=== PATIENT | female | born 1960 | race Caucasian/White ===

== ENCOUNTER 2016-12-11 20:33 | Inpatient (IN) | payer BC ==
[~2016-12-11] VITALS: Ht 160 cm; Wt 64.0 kg
[~2016-12-11 20:33] MED LIST: ALPR0.5T99 PO; CITA20 PO; CYCL-36 PO; LORT5TAB PO
[2016-12-11 20:39] VITALS: BP 115/75; PULSE 94; RESP 20; TEMP 99.6; O2SAT 6; O2SAT 96
[2016-12-11 21:10] VITALS: RESP 20; O2SAT 98
[2016-12-11] MEDS ORDERED: SODIUM CHLORIDE 0.9% FLUSH 5 ML FLUSH IVF PRN (21:15)
[2016-12-11] MEDS ORDERED: ALPR.5 PO (21:15)
[2016-12-11] MEDS ORDERED: CELE20TA PO (21:15)
[2016-12-11] MEDS ORDERED: BUPR150CR PO (21:15)
[2016-12-11] MEDS ORDERED: MOTR200T4 PO (21:15)
[2016-12-11] MEDS ORDERED: HYDR-3516 PO (21:15)
[2016-12-11 21:45] VITALS: BP 108/67; PULSE 96; RESP 20; O2SAT 97
[2016-12-11 22:26] LABS: GLUCOSE,URINE NEG (NEG); KETONE, URINE NEG (NEG); NITRITE,URINE NEG (NEG)
[2016-12-11 22:27] LABS: AUTOMATED NEUTROPHIL # 15.5 TH/MM3 (1.8-7.7); BASOPHIL % 0.2 % (0.0-2.0); EOSINOPHIL # 0.1 TH/MM3 (0-0.4); EOSINOPHIL % 0.4 % (0.0-4.0); HEMATOCRIT 33.5 % (35.0-46.0); LYMPH % 10.6 % (9.0-44.0); MEAN CELL VOLUME 89.4 FL (80.0-100.0); MEAN CORPUSCULAR HEMOGLOBIN 29.5 PG (27.0-34.0); MONO % 5.1 % (0.0-8.0); NEUT % 83.7 % (16.0-70.0); PLATELET COUNT 721 TH/MM3 (150-450); RED BLOOD COUNT 3.74 MIL/MM3 (4.00-5.30); RED CELL DISTRIBUTION WIDTH 12.9 % (11.6-17.2); WHITE BLOOD COUNT 18.6 TH/MM3 (4.0-11.0)
[2016-12-11 22:33] LABS: CHLORIDE 98 MEQ/L (98-107); POTASSIUM 4.1 MEQ/L (3.5-5.1); SODIUM (NA) 136 MEQ/L (136-145)
[2016-12-11 22:37] LABS: APTT (PATIENT) 30.6 SEC (24.3-30.1); PROTHROMBIN TIME - PATIENT 10.6 SEC (9.8-11.6)
[2016-12-11 22:38] LABS: ANION GAP 8 MEQ/L (5-15); BICARBONATE 30.2 MEQ/L (21.0-32.0)
[2016-12-11 22:39] LABS: BLOOD UREA NITROGEN 7 MG/DL (7-18)
[2016-12-11 22:40] VITALS: BP 126/59; PULSE 100; RESP 20; O2SAT 98
[2016-12-11 22:41] LABS: ALT (GPT) 22 U/L (10-53); AST (GOT) 26 U/L (15-37); GLOMERULAR FILTRATION RATE 118 ML/MIN (>89)
[2016-12-11 22:43] LABS: TOTAL BILIRUBIN ADULT 0.2 MG/DL (0.2-1.0)
[2016-12-11 22:44] LABS: ALKALINE PHOSPHATASE 137 U/L (45-117)
--- NOTE | 2016-12-11 22:45 | RADHPO ---
EXAM DATE/TIME: 12/11/2016 21:27 [facility] COMPARISON: No previous studies available for comparison. INDICATIONS : Fever. MEDICAL HISTORY : Uterine cancer SURGICAL HISTORY : Hysterectomy. ENCOUNTER: Initial ACUITY: 1 day PAIN SCORE: 10/10 LOCATION: Bilateral chest FINDINGS: A single view of the chest demonstrates the lungs to be symmetrically aerated without evidence of mas s, infiltrate or effusion. The cardiomediastinal contours are unremarkable. Osseous structures are intact. CONCLUSION: No acute disease. Roberto Rene MD on December 11, 2016 at 22:43 Board Certified Radiologist. This report was verified electronically.
[2016-12-11 22:56] LABS: BLOOD, URINE MOD (NEG)
[2016-12-11 23:00] LABS: METHOD OF COLLECTION CLEAN CATCH; URINE COLOR STRAW (YELLW/STRAW)
[2016-12-11 23:01] LABS: MUCUS URINE OCC /lpf (OCC)
[2016-12-11 23:02] LABS: RBC, URINE 0-3 /hpf (0-3); SQUAMOUS EPITHELIAL CELL URINE 0-5 /hpf (0-5); WBC, URINE 0-2 /hpf (0-5)
[2016-12-11 23:03] LABS: COMMENT (UR) CULT NOT INDICATED; CULTURE IF INDICATED CULT NOT INDICATED
[2016-12-11] MEDS ORDERED: IOHEXOL 350 MG/ML 10 ML VIAL (for RAD DIAG) IV ONE (23:05)
[2016-12-11 23:09] LABS: HEMO FLAGS AUTO DIFF
[2016-12-11 23:12] LABS: PLATELET ESTIMATE SMEAR HIGH (NORMAL); PLATELET MORPHOLOGY NORMAL (NORMAL); SCAN/DIFF AUTO DIFF CONFIRMED
--- NOTE | 2016-12-11 23:19 | RADHPO ---
EXAM DATE/TIME: 12/11/2016 22:22 [facility] COMPARISON: No previous studies available for comparison. INDICATIONS : Left leg swelling. MEDICAL HISTORY : Uterian cancer. Anxiety. SURGICAL HISTORY : Hysterectomy. Tubal ligation. section. Rotator cuff repair. ENCOUNTER: Initial ACUITY: 3 days PAIN SCORE: 8/10 LOCATION: Left leg. TECHNIQUE: Venous ultrasound of the leg was performed from the inguinal ligament to the proximal calf. Real-donald e, color Doppler and spectral tracing, compression and augmentation techniques were used. FINDINGS: There is normal compressibility of the deep venous system from the inguinal region to the proximal ca lf. No echogenic clot is seen in the lumen of the common femoral, femoral, popliteal, and posterior tibial veins. There is a normal response of the venous system to proximal and distal augmentation an d respiration. CONCLUSION: No evidence of DVT. Ruben Manriquez MD on December 11, 2016 at 23:18 Board Certified Radiologist. This report was verified electronically.
[2016-12-11] MEDS ORDERED: metroNIDAZOLE 500 MG INJ 100 ML IV ONE (23:30)
[2016-12-11] MEDS ORDERED: PIPERACIL-TAZO 3.375 GM PREMIX 50 ML IV ONE (23:30)
--- NOTE | 2016-12-11 23:31 | RADHPO ---
EXAM DATE/TIME: 12/11/2016 22:49 [facility] COMPARISON: No previous studies available for comparison. INDICATIONS : Abdomen pain, vomiting. IV CONTRAST: 60 cc Omnipaque 350 (iohexol) IV ORAL CONTRAST: No oral contrast ingested. RADIATION DOSE: 10.52 CTDIvol (mGy) MEDICAL HISTORY : uterine cacner SURGICAL HISTORY : Hysterectomy. ENCOUNTER: Initial ACUITY: 1 day PAIN SCALE: 6/10 LOCATION: abdomen TECHNIQUE: Volumetric scanning of the abdomen and pelvis was performed. Using automated exposure control and ad justment of the mA and/or kV according to patient size, radiation dose was kept as low as reasonably achievable to obtain optimal diagnostic quality images. FINDINGS: LOWER LUNGS: The visualized lower lungs are clear. LIVER: Homogeneous density without lesion. There is no dilation of the biliary tree. No calcified gallston es. SPLEEN: Normal size without lesion. PANCREAS: Within normal limits. KIDNEYS: Normal in size and shape. There is no mass, stone or hydronephrosis. There is a 9 mm cyst along the midpole of the right kidney. ADRENAL GLANDS: Within normal limits. VASCULAR: There is no aortic aneurysm. BOWEL/MESENTERY: The stomach, small bowel, and colon demonstrate no acute abnormality. There is no free intraperitone al air or fluid. ABDOMINAL WALL: Within normal limits. RETROPERITONEUM: The left iliac is muscle is diffusely enlarged and there are multiple areas of low density within the iliacis muscle. The largest component measures about 4.6 cm adjacent to the left iliac wing. There i s a smaller pocket measuring 3.6 cm slightly inferiorly. Small pockets are also noted in the left susan acis muscle. This is characteristic for abscesses in the left iliac is muscle. The adjacent left susan ac bone is not involved at this time. BLADDER: No wall thickening or mass. REPRODUCTIVE: Within normal limits. INGUINAL: There is no lymphadenopathy or hernia. MUSCULOSKELETAL: Within normal limits for patient age. Mild degenerative changes of the lumbar spine. Multiple abscess es are noted in the left iliacis muscle. No free fluid. CONCLUSION: 1. The left iliacis muscle is diffusely enlarged with multiple low-density pockets characteristic for multiple abscesses. The largest pocket measures approximately 4.6 cm. 2. 9 mm right renal cyst. Ruben Manriquez MD on December 11, 2016 at 23:18 Board Certified Radiologist. This report was verified electronically.
[2016-12-11] MEDS ORDERED: HYDROmorphone HCL PF 1 MG/ML VIAL IV PUSH ONE (23:45)
[2016-12-11] MEDS ORDERED: SODIUM CHLOR 0.9% 1000 ML INJ 1,000 ML IV ONE (23:45)
[2016-12-11] MEDS ORDERED: ONDANSETRON HCL 4 MG/2 ML VIAL IV PUSH ONE (23:45)
[2016-12-12] VITALS (14 sets, daily range): BP systolic 96–124; BP diastolic 48–63; PULSE 71–104; RESP 17–20; TEMP 98.4–101.7; O2SAT 94–99
[2016-12-12] MEDS ORDERED: SODIUM CHLORIDE 0.9% FLUSH 5 ML FLUSH IVF PRN
--- NOTE | 2016-12-12 00:28 | PD ---
HPI Chief Complaint: Musculoskeletal Complaint Time Seen by Provider: 21:07 Travel History International Travel<30 days: No Contact w/Intl Traveler<30days: No Traveled to known affect area: No History of Present Illness HPI 56-year-old female presents to the emergency department for complaint of left hip and buttock pain radiating to the left lower extremity with fever chills nausea and vomiting since 11/28/16. According to the patient she had been in her usual state of fairly good health until October when she went to visit family and noted that she was having some vaginal spotting and bleeding and pelvic discomfort. Patient happened to be in [facility] at the time where she is still followed by her strip feeder even though she has subsequently moved to the [facility]. During that visit with her [facility] strip feeder she had a pelvic exam and ultrasound and was identified to have a uterine mass. Patient was referred to a [facility] colleague who performed a uterine biopsy that was found to be positive for uterine cancer. Patient had surgery the next day in [facility] 11/06/17 where she underwent a total hysterectomy with bilateral salpingo-oophorectomy. Patient was told that the surgery was successful and followed up postoperatively with her [facility] DATA SECURITY ANALYST oncologist 11/28/16 as a 3 week postoperative visit. During that visit she was told that the surgery again was successful and that she would not need to be seen by the DATA SECURITY ANALYST oncologist until 4 months for evaluation to determine if radiation therapy would be necessary. Patient states that when she returned home to [place] on 11/28/16 that evening she developed a fever and nausea and vomiting. Patient reportedly continued to have fever nausea and vomiting the next few days therefore contacted her primary care provider Dr. Pond who reportedly phoned in a prescription for the patient at her request. Patient did not go to see her physician in the office. Patient states she does have an appointment with her primary care provider next week. Patient states after 5 days of the oral antibiotic she felt that she was developing an adverse reaction with a rash affecting the trunk of her body. Patient stopped the antibiotic yesterday. Vomiting has resolved. But due to persistent fever and feeling like she was not improving with ongoing low back pain left hip pain and then more recently noticing swelling of the left lower extremity decided to come to the emergency room at this time. Patient rates her discomfort 8-10 over 10 in intensity. Patient denies any respiratory illness no sinus pressure drainage sore throat headache earache also no chest pain pleuritic pain or shortness of breath. Patient denies abdominal pain dysuria frequency urgency. No diarrhea. Patient no longer has vomiting. No report of previous hematemesis coffee-ground emesis or bilious emesis. PFSH Past Medical History Narrative Medical Anxiety depression uterine cancer hysterectomy and salpingo-oophorectomy tubal ligation alcohol use denies tobacco use nursing notes reviewed Anxiety: Yes Cancer: Yes (UTERINE) Diminished Hearing: No Tetanus Vaccination: Unknown Influenza Vaccination: No ?: Not LMP: MENOPAUSAL 13 YEARS AGO Menopausal: Yes : 4 Para: 3 Miscarriage: 1 Tubal Ligation: Yes Past Surgical History Section: Yes (TIMES 3) Gynecologic Surgery: Yes (UTERINE CA REMOVED.) Hysterectomy: Yes Other Surgery: Yes (RIGHT ROTATOR CUFF REPAIR) Social History Alcohol Use: Yes (VERY RARE) Tobacco Use: No (QUIT SEP 2016) Substance Use: No Allergies-Medications (Allergen,Severity, Reaction): Coded Allergies: No Known Allergies (Verified , 12/12/16) Reported Meds & Prescriptions Reported Meds & Active Scripts Active Reported Motrin Ib (Ibuprofen) 200 Mg Tab 200 Mg PO Q6H PRN Wellbutrin SR 12 HR (Bupropion HCl) 150 Mg Tab 150 Mg PO Q12HR Hydrocodone-Acetaminophen 5-325 mg Tab 1 Tab PO Q8HR PRN Celexa (Citalopram Hydrobromide) 20 Mg Tab 20 Mg PO DAILY Xanax (Alprazolam) 0.5 Mg Tab 0.5 Mg PO BID Review of Systems Except as stated in HPI: all other systems reviewed are Neg General / Constitutional: Positive: Fever, Chills HENT: No: Congestion Cardiovascular: No: Chest Pain or Discomfort Respiratory: No: Shortness of Breath Gastrointestinal: Positive: Nausea, No: Vomiting, Diarrhea, Abdominal Pain Genitourinary: No: Dysuria, Pelvic Pain Musculoskeletal: Positive: Pain (back buttock LLE), No: Myalgias, Arthralgias , Limited ROM Skin: No Rash Neurologic: No: Weakness Psychiatric: Positive: Anxiety Hematologic/Lymphatic: No: Lymph Node Enlargement Physical Exam Narrative GENERAL: Well-developed well-nourished female in no acute distress no respiratory distress intermittently crying SKIN: Warm and dry. HEAD: Normocephalic. EYES: No scleral icterus. No injection or drainage. NECK: Supple, trachea midline. No JVD or lymphadenopathy. CARDIOVASCULAR: Regular rate and rhythm without murmurs, gallops, or rubs. RESPIRATORY: Breath sounds equal bilaterally. No accessory muscle use. GASTROINTESTINAL: Abdomen soft, non-tender, nondistended. MUSCULOSKELETAL: No cyanosis, or edema. Left lower leg mild edema dorsalis pedis pulse 2+ to palpation capillary refill brisk and less than 2 seconds per digit no pallor or coolness of the limb; bilateral upper extremities and right lower extremity exams within normal limits with 2+ radial and dorsalis pedis pulse. BACK: Mild tenderness to palpation over the lower lumbar spine and left SI joint to direct palpation without obvious deformity; left buttock tenderness without redness ecchymosis induration or fluctuance. No CVA tenderness. Data Data Last Documented VS Vital Signs Date Time Temp Pulse Resp B/P Pulse Ox O2 Delivery O2 Flow Rate FiO2 12/11/16 22:40 100 20 126/59 98 Room Air 12/11/16 20:39 99.6 Orders Complete Blood Count With Diff (12/11/16 21:07) Comprehensive Metabolic Panel (12/11/16 21:07) Lipase (12/11/16 21:07) Lactic Acid (12/11/16 21:07) Prothrombin Time / Inr (Pt) (12/11/16 21:07) Act Partial Throm Time (Ptt) (12/11/16 21:07) Urinalysis - C+S If Indicated (12/11/16 21:07) Ct Abd/Pel W Iv Contrast(Rout) (12/11/16 21:07) Iv Access Insert/Monitor (12/11/16 21:07) Ecg Monitoring (12/11/16 21:07) Oximetry (12/11/16 21:07) Sodium Chloride 0.9% Flush (Ns Flush) (12/11/16 21:15) Chest, Single Ap (12/11/16 21:07) Blood Culture (12/11/16 21:07) Us Leg Venous Doppler (12/11/16 ) Iohexol 350 Inj (Omnipaque 350 Inj) (12/11/16 23:05) Metronidazole 500 Mg Inj (Flagyl 500 Mg (12/11/16 23:30) Piperacil-Tazo 3.375 Gm Premix (Zosyn 3. (12/11/16 23:30) Lactic Acid (12/11/16 23:27) Hydromorphone Pf Inj (Dilaudid Pf Inj) (12/11/16 23:45) Sodium Chlor 0.9% 1000 Ml Inj (Ns 1000 M (12/11/16 23:45) Ondansetron Inj (Zofran Inj) (12/11/16 23:45) Admit Order (Ed Use Only) (12/11/16 ) ^ Saline Lock (12/11/16 23:56) Resp Oxygen Julio Cesar C Titrat 1-4 L (12/11/16 ) ^ Notify Dr: Other (12/11/16 23:56) Sodium Chloride 0.9% Flush (Ns Flush) (12/12/16 09:00) Sodium Chloride 0.9% Flush (Ns Flush) (12/12/16 00:00) ^ For Further Orders (12/11/16 23:56) Labs Laboratory Tests Test 12/11/16 12/11/16 21:20 21:55 Urine Collection Type CLEAN CATCH Urine Color STRAW Urine Turbidity CLEAR Urine pH 6.0 Urine Specific [place] 1.008 Urine Protein NEG mg/dL Urine Glucose (UA) NEG mg/dL Urine Ketones NEG mg/dL Urine Occult Blood MOD Urine Nitrite NEG Urine Bilirubin NEG Urine Leukocyte Esterase NEG Urine RBC 0-3 /hpf Urine WBC 0-2 /hpf Urine Squamous Epithelial 0-5 /hpf Cells Urine Mucus OCC /lpf Microscopic Urinalysis Comment CULT NOT INDICATED White Blood Count 18.6 TH/MM3 Red Blood Count 3.74 MIL/MM3 Hemoglobin 11.0 GM/DL Hematocrit 33.5 % Mean Corpuscular Volume 89.4 FL Mean Corpuscular Hemoglobin 29.5 PG Mean Corpuscular Hemoglobin 33.0 % Concent Red Cell Distribution Width 12.9 % Platelet Count 721 TH/MM3 Mean Platelet Volume 6.1 FL Neutrophils (%) (Auto) 83.7 % Lymphocytes (%) (Auto) 10.6 % Monocytes (%) (Auto) 5.1 % Eosinophils (%) (Auto) 0.4 % Basophils (%) (Auto) 0.2 % Neutrophils # (Auto) 15.5 TH/MM3 Lymphocytes # (Auto) 2.0 TH/MM3 Monocytes # (Auto) 1.0 TH/MM3 Eosinophils # (Auto) 0.1 TH/MM3 Basophils # (Auto) 0.0 TH/MM3 CBC Comment AUTO DIFF Differential Comment AUTO DIFF CONFIRMED Platelet Estimate HIGH Platelet Morphology Comment NORMAL Red Cell Morphology Comment NORMAL Prothrombin Time 10.6 SEC Prothromb Time International 1.0 RATIO Ratio Activated Partial 30.6 SEC Thromboplast Time Sodium Level 136 MEQ/L Potassium Level 4.1 MEQ/L Chloride Level 98 MEQ/L Carbon Dioxide Level 30.2 MEQ/L Anion Gap 8 MEQ/L Blood Urea Nitrogen 7 MG/DL Creatinine 0.53 MG/DL Estimat Glomerular Filtration 118 ML/MIN Rate Random Glucose 95 MG/DL Lactic Acid Level 1.9 mmol/L Calcium Level 9.0 MG/DL Total Bilirubin 0.2 MG/DL Aspartate Amino Transf 26 U/L (AST/SGOT) Alanine Aminotransferase 22 U/L (ALT/SGPT) Alkaline Phosphatase 137 U/L Total Protein 7.6 GM/DL Albumin 2.7 GM/DL Lipase 68 U/L [facility] Medical Decision Making Medical Screen Exam Complete: Yes Emergency Medical Condition: Yes Medical Record Reviewed: Yes Interpretation(s) Laboratory Tests Test 12/11/16 12/11/16 21:20 21:55 Urine Collection Type CLEAN CATCH Urine Color STRAW Urine Turbidity CLEAR Urine pH 6.0 Urine Specific [place] 1.008 Urine Protein NEG mg/dL Urine Glucose (UA) NEG mg/dL Urine Ketones NEG mg/dL Urine Occult Blood MOD Urine Nitrite NEG Urine Bilirubin NEG Urine Leukocyte Esterase NEG Urine RBC 0-3 /hpf Urine WBC 0-2 /hpf Urine Squamous Epithelial 0-5 /hpf Cells Urine Mucus OCC /lpf Microscopic Urinalysis Comment CULT NOT INDICATED White Blood Count 18.6 TH/MM3 Red Blood Count 3.74 MIL/MM3 Hemoglobin 11.0 GM/DL Hematocrit 33.5 % Mean Corpuscular Volume 89.4 FL Mean Corpuscular Hemoglobin 29.5 PG Mean Corpuscular Hemoglobin 33.0 % Concent Red Cell Distribution Width 12.9 % Platelet Count 721 TH/MM3 Mean Platelet Volume 6.1 FL Neutrophils (%) (Auto) 83.7 % Lymphocytes (%) (Auto) 10.6 % Monocytes (%) (Auto) 5.1 % Eosinophils (%) (Auto) 0.4 % Basophils (%) (Auto) 0.2 % Neutrophils # (Auto) 15.5 TH/MM3 Lymphocytes # (Auto) 2.0 TH/MM3 Monocytes # (Auto) 1.0 TH/MM3 Eosinophils # (Auto) 0.1 TH/MM3 Basophils # (Auto) 0.0 TH/MM3 CBC Comment AUTO DIFF Differential Comment AUTO DIFF CONFIRMED Platelet Estimate HIGH Platelet Morphology Comment NORMAL Red Cell Morphology Comment NORMAL Prothrombin Time 10.6 SEC Prothromb Time International 1.0 RATIO Ratio Activated Partial 30.6 SEC Thromboplast Time Sodium Level 136 MEQ/L Potassium Level 4.1 MEQ/L Chloride Level 98 MEQ/L Carbon Dioxide Level 30.2 MEQ/L Anion Gap 8 MEQ/L Blood Urea Nitrogen 7 MG/DL Creatinine 0.53 MG/DL Estimat Glomerular Filtration 118 ML/MIN Rate Random Glucose 95 MG/DL Lactic Acid Level 1.9 mmol/L Calcium Level 9.0 MG/DL Total Bilirubin 0.2 MG/DL Aspartate Amino Transf 26 U/L (AST/SGOT) Alanine Aminotransferase 22 U/L (ALT/SGPT) Alkaline Phosphatase 137 U/L Total Protein 7.6 GM/DL Albumin 2.7 GM/DL Lipase 68 U/L Laboratory Tests Test 12/11/16 12/11/16 21:20 21:55 Urine Collection Type CLEAN CATCH Urine Color STRAW Urine Turbidity CLEAR Urine pH 6.0 Urine Specific [place] 1.008 Urine Protein NEG mg/dL Urine Glucose (UA) NEG mg/dL Urine Ketones NEG mg/dL Urine Occult Blood MOD Urine Nitrite NEG Urine Bilirubin NEG Urine Leukocyte Esterase NEG Urine RBC 0-3 /hpf Urine WBC 0-2 /hpf Urine Squamous Epithelial 0-5 /hpf Cells Urine Mucus OCC /lpf Microscopic Urinalysis Comment CULT NOT INDICATED White Blood Count 18.6 TH/MM3 Red Blood Count 3.74 MIL/MM3 Hemoglobin 11.0 GM/DL Hematocrit 33.5 % Mean Corpuscular Volume 89.4 FL Mean Corpuscular Hemoglobin 29.5 PG Mean Corpuscular Hemoglobin 33.0 % Concent Red Cell Distribution Width 12.9 % Platelet Count 721 TH/MM3 Mean Platelet Volume 6.1 FL Neutrophils (%) (Auto) 83.7 % Lymphocytes (%) (Auto) 10.6 % Monocytes (%) (Auto) 5.1 % Eosinophils (%) (Auto) 0.4 % Basophils (%) (Auto) 0.2 % Neutrophils # (Auto) 15.5 TH/MM3 Lymphocytes # (Auto) 2.0 TH/MM3 Monocytes # (Auto) 1.0 TH/MM3 Eosinophils # (Auto) 0.1 TH/MM3 Basophils # (Auto) 0.0 TH/MM3 CBC Comment AUTO DIFF Differential Comment AUTO DIFF CONFIRMED Platelet Estimate HIGH Platelet Morphology Comment NORMAL Red Cell Morphology Comment NORMAL Prothrombin Time 10.6 SEC Prothromb Time International 1.0 RATIO Ratio Activated Partial 30.6 SEC Thromboplast Time Sodium Level 136 MEQ/L Potassium Level 4.1 MEQ/L Chloride Level 98 MEQ/L Carbon Dioxide Level 30.2 MEQ/L Anion Gap 8 MEQ/L Blood Urea Nitrogen 7 MG/DL Creatinine 0.53 MG/DL Estimat Glomerular Filtration 118 ML/MIN Rate Random Glucose 95 MG/DL Lactic Acid Level 1.9 mmol/L Calcium Level 9.0 MG/DL Total Bilirubin 0.2 MG/DL Aspartate Amino Transf 26 U/L (AST/SGOT) Alanine Aminotransferase 22 U/L (ALT/SGPT) Alkaline Phosphatase 137 U/L Total Protein 7.6 GM/DL Albumin 2.7 GM/DL Lipase 68 U/L Last Impressions Chest X-Ray 12/11/162106 Signed Impressions: Service Date/Time: Sunday, December 11, 2016 21:27 - CONCLUSION: No acute disease. Roberto Rene MD Abdomen/Pelvis CT 12/11/162106 Signed Impressions: Service Date/Time: Sunday, December 11, 2016 22:49 - CONCLUSION: 1. The left iliacis muscle is diffusely enlarged with multiple low-density pockets characteristic for multiple abscesses. The largest pocket measures approximately 4.6 cm. 2. 9 mm right renal cyst. Ruben Manriquez MD Lower Extremity Ultrasound 12/11/16 0000 Signed Impressions: Service Date/Time: Sunday, December 11, 2016 22:22 - CONCLUSION: No evidence of DVT. Ruben Manriquez MD Differential Diagnosis Febrile illness, UTI, pelvic infection, abscess, sciatica, DVT Narrative Course IV access obtained specimens collected and sent for resulting Patient identified to have leukocytosis of 18,000 with left shift; patient sent for a CT abdomen and pelvis imaging CT remarkable for multiple abscesses in the left iliac muscle sparing the iliac bone Patient's case discussed with on-call general surgery no recommendations further involvement have discussed case with radiologist at recommends interventional radiology maybe up to drain 1 however there are multiple abscesses. Patient will need to be admitted for ongoing IV antibiotics and minimally a DATA SECURITY ANALYST consult if not a DATA SECURITY ANALYST oncology consult and infectious disease involvement for antibiotic recommendations. Patient is aware she will be admitted Patient administered pain medication at her request Sepsis Criteria SIRS Criteria (2 or more): Heart rate over 90, WBC > 02437, < 4000 or > 10% bands Sepsis Criteria (SIRS+source): Infect source susp/known (iliac muscle) Physician Communication Physician Communication call placed to for Dr Pond-- Lacho Hurtado PA-C to Dr Garland [facility]; discussed with Dr Niño --nothing at this time for Gen Surgery--possible IR to drain abscesses and/ot Agricultural Equipment Mechanic/Onc Dr Perez Diagnosis Primary Impression: Muscle abscess Additional Impressions: Leukocytosis Sepsis Admitting Information Admitting Physician Requests: Admit Kya Cr MD Dec 12, 2016 00:28
[2016-12-12] MEDS ORDERED: ONDANSETRON HCL 4 MG/2 ML VIAL IVP PRN (00:45)
[2016-12-12] MEDS ORDERED: NALOXONE HCL 0.4 MG/ML AMP IV PRN ×2 (00:45)
[2016-12-12] MEDS ORDERED: SODIUM CHLORIDE 0.9% FLUSH 5 ML FLUSH FLUSH PRN (00:45)
[2016-12-12] MEDS ORDERED: Vancomycin Consult Pharmacy 1 EA XX SCH (00:45)
[2016-12-12] MEDS: SODIUM CHLOR 0.9% 1000 ML INJ 1,000 ML IV SCH ×3 (01:07→18:57)
[2016-12-12] MEDS ORDERED: HYDROmorphone HCL PF 1 MG/ML VIAL IV PUSH ONE (01:45)
[2016-12-12] MEDS: VANCOMYCIN 1,000 MG/NS 250 ML IV SCH ×4 (02:12→14:39)
[2016-12-12] MEDS: HYDROmorphone HCL PF 1 MG/ML VIAL IV PRN ×4 (03:21→17:23)
[2016-12-12] MEDS: ACETAMINOPHEN 325 MG TAB PO PRN (03:31)
[2016-12-12] MEDS: PIPERACIL-TAZO 4.5 GM PREMIX 100 ML IV SCH ×3 (07:08→18:45)
[2016-12-12] MEDS: SODIUM CHLORIDE 0.9% FLUSH 5 ML FLUSH FLUSH SCH (08:36)
[2016-12-12] MEDS ORDERED: SODIUM CHLORIDE 0.9% FLUSH 5 ML FLUSH IVF SCH (09:00)
[2016-12-12] MEDS: metroNIDAZOLE 500 MG INJ 100 ML IV SCH ×2 (09:12→17:29)
[2016-12-12] MEDS: oxyCODONE/ACETAMINOPHEN 7.5 MG/325 MG TAB PO PRN ×4 (09:49→23:26)
[2016-12-12] MEDS: ALPRAZolam 0.5 MG TAB PO PRN ×2 (13:51→23:26)
[2016-12-13] VITALS (10 sets, daily range): BP systolic 94–117; BP diastolic 52–67; PULSE 73–101; RESP 17–20; TEMP 96.4–101.6; O2SAT 92–96
[2016-12-13] MEDS: SODIUM CHLORIDE 0.9% FLUSH 5 ML FLUSH FLUSH SCH ×3 (01:05→21:56)
[2016-12-13] MEDS: metroNIDAZOLE 500 MG INJ 100 ML IV SCH ×3 (01:05→17:12)
[2016-12-13] MEDS: ACETAMINOPHEN 325 MG TAB PO PRN ×2 (01:22→16:27)
[2016-12-13] MEDS: PIPERACIL-TAZO 4.5 GM PREMIX 100 ML IV SCH ×5 (01:24→23:27)
[2016-12-13] MEDS: VANCOMYCIN 1,000 MG/NS 250 ML IV SCH ×4 (01:26→13:36)
[2016-12-13] MEDS: oxyCODONE/ACETAMINOPHEN 7.5 MG/325 MG TAB PO PRN (06:31)
[2016-12-13] MEDS: ALPRAZolam 0.5 MG TAB PO PRN (06:31)
[2016-12-13] MEDS: SODIUM CHLOR 0.9% 1000 ML INJ 1,000 ML IV SCH (06:32)
[2016-12-13 07:15] LABS: AUTOMATED NEUTROPHIL # 10.1 TH/MM3 (1.8-7.7); BASOPHIL % 0.2 % (0.0-2.0); EOSINOPHIL # 0.1 TH/MM3 (0-0.4); EOSINOPHIL % 0.4 % (0.0-4.0); HEMO FLAGS DIFF FINAL; LYMPH % 12.6 % (9.0-44.0); LYMPHOCYTE # 1.6 TH/MM3 (1.0-4.8); MEAN CELL VOLUME 87.2 FL (80.0-100.0); MEAN CORPUSCULAR HEMOGLOBIN 29.5 PG (27.0-34.0); MEAN CORPUSCULAR HGB CONC 33.8 % (32.0-36.0); MONO % 6.9 % (0.0-8.0); NEUT % 79.9 % (16.0-70.0); PLATELET COUNT 575 TH/MM3 (150-450); RED BLOOD COUNT 3.32 MIL/MM3 (4.00-5.30); RED CELL DISTRIBUTION WIDTH 13.2 % (11.6-17.2); WHITE BLOOD COUNT 12.7 TH/MM3 (4.0-11.0)
[2016-12-13] MEDS: ASPIRIN 81 MG CHEW TAB CHEW SCH (08:55)
[2016-12-13] MEDS: PANTOPRAZOLE SOD 40 MG DELAYED RELEASE TAB PO SCH (08:55)
[2016-12-13] MEDS: HYDROmorphone HCL PF 1 MG/ML VIAL IV PRN (09:01)
--- NOTE | 2016-12-13 09:33 | MH ---
cc: CARA GARLAND MD DATE OF ADMISSION: 12/12/2016 CHIEF COMPLAINT Left pelvic and hip pain with vaginal spotting and bleeding, nausea and vomiting. TRAVEL No international travel in less than 30 days. HISTORY OF PRESENT ILLNESS This is a pleasant 56 year-old white female who presented to the emergency room with fever, chills, nausea and vomiting since November 28, 2016. She also complained of some vaginal spotting and bleeding with increased pelvic discomfort. She states that she was struggling to ambulate and to change positions in the bed. The patient was in her usual state of health until October in which she started having abnormal spotting and bleeding. She was found to be positive for uterine cancer after a biopsy and underwent a total hysterectomy with bilateral salpingo-oophorectomy on November 06, 2016. She was told that the surgery was a success and she would have a three week postop visit. She returned to that visit without any major problems or issues. Approximately 48 hours later, she had a severe onset of nausea and vomiting. She states that she had dry heaves to the point that she could not recover. She called her physician, Dr. Pond, who gave her nausea medications. The patient was also given Cipro for a five day plan. After beginning the Cipro, she began to have blisters/rash chiefly affecting the trunk of her body so the antibiotic was stopped. The patient has had persistent fever, continues with left pelvic pain and left sided abdominal pain. She has had approximately a five pound weight loss since the initial surgery, but states at this point, she feels like she has some fluid build up or some swelling in her abdomen. The patient denies any headache. The patient states the nausea has improved, but she is still having the fever and chills. The patient does present some anxiety over her current illness and states that she just wants to get to feeling better. The patient denies any diarrhea, constipation, sore throat, chest pain or shortness of breath. PAST MEDICAL HISTORY Includes: 1. Recent uterine cancer 2. Anxiety disorder 3. Hypoglycemia 4. Tobacco abuse PAST SURGICAL HISTORY 1. section times three 2. Recent hysterectomy with ovaries removed. 3. Right rotator cuff repair. ALLERGIES No known drug allergies. HOME MEDICATIONS 1. Ibuprofen q6 as needed 200 mg 2. Wellbutrin SR 150 mg p.o. q12 3. [place] 5/325 one p.o. q8 as needed 4. Celexa 20 mg daily 5. Xanax 0.5 mg p.o. twice a day VITAL SIGNS Temperature 101.6, the patient was medicated and it is now 97.3, pulse 91, respiration 20, blood pressure 114/55. REVIEW OF SYSTEMS A 14-point review was done. Positive findings include fever, chills, positive for nausea, positive for abdominal pain and left sided pelvic pain, positive for anxiety. All other systems negative or unremarkable. SOCIAL HISTORY Denies any alcohol use. Long-term tobacco use of approximately 20 years, states that she quit in September of 2016. Denies any illicit drugs. The patient is and currently lives at home with her . PHYSICAL EXAM GENERAL: This is a well-developed, well-nourished, but slim white female resting in the bed with head of bed elevated 70 degrees. Mild anxiety. SKIN: Warm and dry, positive for small macular papular rash predominantly on the abdomen and trunk, appears to be drying. HEAD, EYES, EARS, NOSE, AND THROAT: Atraumatic, normocephalic. No JVD. Neck is supple. Pupils are 2 mm bilateral and reactive to light. No scleral icterus. No nasal drainage. CARDIOVASCULAR: Regular rate and rhythm. Soft systolic murmur grade 2/6 noted at the lower left sternal border. There is no edema and her pulses are intact. RESPIRATORY: Lungs are essentially clear anteriorly and posteriorly bilateral. No accessory muscular use. GI: Abdomen is flat, soft, some tenderness noted to mild palpation. Minimal distention. MUSCULOSKELETAL: No edema in her lower extremities. Pulses 2+/4+. There is some mild minimal edema in her left pelvic area as compared to the right side. Mild tenderness to tactile stimulation in her lower back, but no CVA tenderness. NEUROLOGIC: She is alert and oriented times four, a good historian, talkative. Cranial nerve intact. Mild anxiety. Borderline tearful. PSYCHOLOGIC: Mood and affect is normal for the situation. LABS On 12/11/2016, white count was 18.6. On 12/13/2016, white count was 12.7. RBC 3.32, hemoglobin 9.8, hematocrit 29, platelets 575, neutrophil auto count 79.9. PT-INR 1. Urine is a clean-catch specimen with straw-colored clear, pH is 6, specific gravity 1.008, negative for proteins, glucose, ketones, a moderate amount of occult blood, negative for nitrites, bilirubin or leukocyte esterase. Culture is not indicated. Potassium 136, chloride 4.1, carbon dioxide 98, amnion gap 30.2, BUN 8, creatinine 0.53, GFR 118, random glucose 95, lactic acid 0.9, calcium 9, alkaline phosphatase 137, albumin 2.7, total protein 7.6, lipase 68. IMAGING STUDIES All done on 12/11/2016, pelvic CT left iliacus muscle is diffusely enlarged with multiple low density pockets characteristic for multiple abscesses. The larges pocket is approximately 4.6 cm, 2.9 mm right renal cyst. Chest x-ray, no acute disease. Lower extremity ultrasound, no evidence of DVT. ASSESSMENT AND PLAN 1. Sepsis 2. Left iliacus muscle diffuse multiple abscesses 3. Leukocytosis 4. Sciatica 5. Moderate protein calorie malnutrition 6. History of recent uterine cancer status post hysterectomy with oophorectomy. 7. Anxiety disorder 8. Recent history of tobacco abuse. PLAN 1. Reconcile her medications. 2. Pain management 3. She has been started on Vancomycin, consult Infectious Disease for their expert opinion. 4. Vital signs are q4 5. She can be out of the bed with assistance, but needs to call for safety purposes due to weakness in her left pelvis/hip. 6. We will monitor her blood work which will include BMP and CBC for in the morning. 7. Do a nutritional consult to assist with her malnutrition. 8. Gentle hydration 9. ECG monitoring 10. Elevate left leg on pillows 11. PUD prophylaxis with Protonix 12. DVT prophylaxis, start aspirin 13. This information has been discussed with the patient and her nurse. 14. The patient's case has been discussed with general surgery who has no further recommendations from his standpoint, but the patient may need a drain/and/or I&D for her multiple abscesses. 15. Supportive care to patient now and throughout her stay. 16. The patient is full code, full aggressive care per her request. 17. Sepsis criteria has been initiated for infectious source in the iliac muscle, heart over 90, white count greater than 12,000. We will follow. 18. PUD prophylaxis with Protonix. 19. DVT prophylaxis with aspirin. The patient is full code, full aggressive care per her wishes. Patient will receive supportive care today and throughout her stay. As stated before we will be looking at the expert opinion for any needs of incision and drainage of the left iliacus muscle. We will support. Dictated by ANIL Street MD ANN Jackson/THOMAS /8:17 AM /9:32 AM PT is seen & Examined d/w PT & her sig other d/w Yas d/w RN Left Iliacus muscle abscess vag. spotting s/p recent hysterectomy for Uterine ca Intractable pain NAVEEN see Orders see H&P will f/u Cara Garland MD Dec 13, 2016 10:25 MTDD
--- NOTE | 2016-12-13 10:25 | HHI.PR ---
Objective Objective Results - Vital Signs Date Time Temp Pulse Resp B/P Pulse Ox O2 Delivery O2 Flow Rate FiO2 12/13/16 09:31 18 12/13/16 08:00 97.3 81 17 94/55 95 12/13/16 07:31 18 12/13/16 04:00 97.3 12/13/16 00:00 101.6 91 17 114/55 96 12/12/16 20:00 98.6 77 17 124/62 98 12/12/16 19:27 98 12/12/16 19:10 84 18 12/12/16 19:00 99.5 84 18 124/60 99 Room Air 12/12/16 13:00 71 20 123/57 98 Room Air 12/12/16 11:14 79 20 12/12/16 11:13 78 20 115/60 98 Room Air I/O 12/12/16 12/12/16 12/12/16 12/13/16 12/13/16 12/13/16 07:00 15:00 23:00 07:00 15:00 23:00 Intake Total 1980 ml 739 ml Output Total 500 ml Balance -500 ml 1980 ml 739 ml Intake Oral 480 ml 240 ml IV Total 1500 ml 499 ml Output Urine Total 500 ml # Voids 1 5 Result Diagram: 12/13/16 0533 12/11/162154 Other Results Laboratory Tests Test 12/13/16 05:33 White Blood Count 12.7 Red Blood Count 3.32 Hemoglobin 9.8 Hematocrit 29.0 Mean Corpuscular Volume 87.2 Mean Corpuscular Hemoglobin 29.5 Mean Corpuscular Hemoglobin 33.8 Concent Red Cell Distribution Width 13.2 Platelet Count 575 Mean Platelet Volume 6.1 Neutrophils (%) (Auto) 79.9 Lymphocytes (%) (Auto) 12.6 Monocytes (%) (Auto) 6.9 Eosinophils (%) (Auto) 0.4 Basophils (%) (Auto) 0.2 Neutrophils # (Auto) 10.1 Lymphocytes # (Auto) 1.6 Monocytes # (Auto) 0.9 Eosinophils # (Auto) 0.1 Basophils # (Auto) 0.0 CBC Comment DIFF FINAL Differential Comment Date/Time Procedure Status Source Growth 12/11/16 22:06 Aerobic Blood Culture - Preliminary Resulted Blood Peripheral NO GROWTH IN 1 DAY 1/23/17 22:06 Anaerobic Blood Culture - Preliminary Resulted Blood Peripheral NO GROWTH IN 1 DAY Physical Exam Physical Exam PT is seen & Examined d/w PT & her sig other d/w Yas d/w RN Left Iliacus muscle abscess vag. spotting s/p recent hysterectomy for Uterine ca Intractable pain NAVEEN see Orders see H&P will f/u Milla Garland MD Dec 13, 2016 10:25
[2016-12-13] MEDS: HYDROmorphone HCL PF 2 MG/ML VIAL IV PUSH PRN ×4 (10:31→21:52)
[2016-12-13] MEDS ORDERED: MAGNESIUM HYDROXIDE SUSP 30 ML CUP PO PRN (11:00)
[2016-12-13] MEDS: oxyCODONE/ACETAMINOPHEN 10 MG/325 MG TAB PO PRN ×3 (11:32→23:27)
[2016-12-13] MEDS: DEXT 5%-NACL 0.45% 1000 ML INJ 1,000 ML IV SCH ×2 (11:33→21:56)
--- NOTE | 2016-12-13 12:08 | PD.CONS ---
History of Present Illness Service WESTERN PHILOSOPHY PROFESSOR/ONC Consult Requested By Dr. Garland Reason for Consult iliac muscle abscess s/p hyst for endometrial cancer in [facility] 11/03 Primary Care Physician Tom Pond MD Diagnoses: (1) Muscle abscess History of Present Illness This is a 56 year old female who in 11/03 had RA lap hyst for endometrial cancer with Dr. Farida Torres in [facility], she was seen for her post op visit on 11/28/16 and she states she was feeling well and her surgeon was happy with her recovery. She had returned home to this area when she started having nausea with vomiting and fevers. Dr. Pond her PCP started her on Cipro but this gave her a rash and she stopped taking the medication. She then started having pain and swelling in her left leg and presented to ER for further evaluation. Review of Systems Constitutional: COMPLAINS OF: Fatigue, Fever, Weight loss Musculoskeletal: COMPLAINS OF: Muscle aches Past Family Social History Allergies: Coded Allergies: No Known Allergies (Verified , 12/12/16) Past Medical History recent DX endometrial cancer hypoglycemia anxiety disorder Past Surgical History c-sections RA lap hyst with BSO right rotator cuff Reported Medications per EMR Active Ordered Medications Current Medications IV Flush (NS Flush) 2 ml UNSCH PRN IVF FLUSH AFTER USING IV ACCESS; Start 12/11 at 21:15; Stop 12/12/16 at 00:08; Status DC Iohexol 60 ml 60 ml STK-MED ONCE IV Last administered on 12/11/16 23:05; Start 12/11/16 at 23:05; Stop 12/11/16 at 23:06; Status DC Metronidazole 100 ml @ 100 mls/hr ONCE ONCE IV Last administered on 01:03; Start 12/11/16 at 23:30; Stop 12/12/16 at 00:29; Status DC Piperacillin Sod/ Tazobactam Sod (Zosyn 3.375 Gm Premix) 50 ml @ 100 mls/hr ONCE ONCE IV Last administered on 12/12/16 00:11; Start 12/11/16 at 23:30; Stop 12/11/16 at 23:59; Status DC Hydromorphone HCl 0.5 mg 0.5 mg ONCE ONCE IV PUSH Last administered on 00:07; Start 12/11/16 at 23:45; Stop 12/11/16 at 23:46; Status DC Sodium Chloride (NS 1000 ml Inj) 1,000 ml @ 999 mls/hr BOLUS ONCE IV Last administered on 12/12/16 00:05; Start 12/11/16 at 23:45; Stop 12/12/16 at 00:46 ; Status DC Ondansetron HCl (Zofran Inj) 4 mg ONCE ONCE IV PUSH Last administered on 00:03; Start 12/11/16 at 23:45; Stop 12/11/16 at 23:46; Status DC IV Flush (NS Flush) 2 ml BID IVF ; Start 12/12/16 at 09:00; Stop 12/12/16 at 09: 00; Status DC IV Flush 2 ml 2 ml UNSCH PRN IVF FLUSH AFTER USING IV ACCESS; Start 12/12/16 at 00:00; Stop 12/12/16 at 00:51; Status DC Sodium Chloride (NS 1000 ml Inj) 1,000 ml @ 100 mls/hr Q10H IV Last administered on 12/13/16 06:32; Start 12/12/16 at 00:38; Stop 12/13/16 at 10:20 ; Status DC IV Flush (NS Flush) 2 ml UNSCH PRN FLUSH FLUSH AFTER USING IV ACCESS; Start at 00:45 IV Flush (NS Flush) 2 ml BID FLUSH Last administered on 12/13/16 01:05; Start 12/12/16 at 09:00 Acetaminophen (Tylenol) 650 mg Q4H PRN PO TEMP > 100.4 Last administered on 01:22; Start 12/12/16 at 00:45 Ondansetron HCl (Zofran Inj) 4 mg Q6H PRN IVP NAUSEA OR VOMITING Last administered on 12/12/16 07:08; Start 12/12/16 at 00:45 Naloxone HCl 0.4 mg 0.4 mg UNSCH PRN IV SEE LABEL COMMENTS; Start 12/12/16 at 00:45; Stop 12/12/16 at 00:51; Status DC Metronidazole 100 ml @ 100 mls/hr Q8H IV Last administered on 12/13/16 09:02 ; Start 12/12/16 at 09:00 Pharmacy Profile Note 0 ml @ 0 mls/hr UNSCH XX ; Start 12/12/16 at 00:45 Piperacillin Sod/ Tazobactam Sod (Zosyn 4.5 Gm Premix) 100 ml @ 200 mls/hr Q6H IV Last administered on 12/13/16 11:32; Start 12/12/16 at 06:00 Naloxone HCl (Narcan Inj) 0.4 mg UNSCH PRN IV SEE LABEL COMMENTS; Start at 00:45 Hydromorphone HCl (Dilaudid Pf Inj) 0.5 mg Q3H PRN IV Pain 3-5; if unable to take PO Last administered on 12/12/16 07:08; Start 12/12/16 at 00:45; Stop at 10:15; Status DC Hydromorphone HCl 1 mg 1 mg Q3H PRN IV Pain 6-10;if unable to take PO Last administered on 12/13/16 09:01; Start 12/12/16 at 00:45; Stop 12/13/16 at 10:15 ; Status DC Vancomycin HCl/ Sodium Chloride (Vancomycin Inj/ NS 250 ml Inj) 250 ml @ 250 mls/hr Q12H IV Last administered on 12/13/16 01:26; Start 12/12/16 at 02:00 Miscellaneous Information SPECIFIC LAB TO BE ... ONCE ONCE XX ; Start at 13:45; Stop 12/13/16 at 13:46 Hydromorphone HCl (Dilaudid Pf Inj) 0.5 mg ONCE ONCE IV PUSH Last administered on 12/12/16 02:14; Start 12/12/16 at 01:45; Stop 12/12/16 at 01:46 ; Status DC Oxycodone/ Acetaminophen (Percocet 7.5-325 Mg) 1 tab Q4H PRN PO pain 6 to 10 Last administered on 12/13/16 06:31; Start 12/12/16 at 09:30; Stop 12/13/16 at 10:15; Status DC Alprazolam (Xanax) 0.5 mg Q8H PRN PO ANXIETY Last administered on 12/13/16 06: 31; Start 12/12/16 at 14:00 Pantoprazole Sodium (Protonix) 40 mg DAILY PO ; Start 12/13/16 at 09:00 Aspirin (Aspirin Chew) 81 mg DAILY CHEW ; Start 12/13/16 at 09:00 Hydromorphone HCl (Dilaudid Pf Inj) 1.5 mg Q3H PRN IV PUSH PAIN SCALE 7 TO 10 Last administered on 12/13/16 10:31; Start 12/13/16 at 10:30 Oxycodone/ Acetaminophen (Percocet 10-325 Mg) 1 tab Q4H PRN PO pain 5 to 7 Last administered on 12/13/16 11:32; Start 12/13/16 at 10:15 Docusate Sodium (Colace) 100 mg BID PO ; Start 12/13/16 at 21:00 Magnesium Hydroxide 30 ml 30 ml DAILY PRN PO constipation; Start 12/13/16 at 11 :00 Dextrose/Sodium Chloride (D5W-1/2 NS 1000 ml Inj) 1,000 ml @ 100 mls/hr Q10H IV Last administered on 12/13/16 11:33; Start 12/13/16 at 11:00 Bupropion HCl (Wellbutrin Sr) 150 mg Q12HR PO ; Start 12/13/16 at 21:00 Citalopram Hydrobromide (CeleXA) 20 mg DAILY PO ; Start 12/14/16 at 09:00 Social History smoking Physical Exam Vital Signs Vital Signs Date Time Temp Pulse Resp B/P Pulse Ox O2 Delivery O2 Flow Rate FiO2 12/13/16 11:01 18 12/13/16 09:31 18 12/13/16 08:00 97.3 81 17 94/55 95 12/13/16 07:31 18 12/13/16 04:00 97.3 12/13/16 00:00 101.6 91 17 114/55 96 12/12/16 20:00 98.6 77 17 124/62 98 12/12/16 19:27 98 12/12/16 19:10 84 18 12/12/16 19:00 99.5 84 18 124/60 99 Room Air 12/12/16 13:00 71 20 123/57 98 Room Air Physical Exam GENERAL: This is a well-nourished, well-developed patient, in no apparent distress. SKIN: No rashes, ecchymoses or lesions. Cool and dry. HEAD: Atraumatic. Normocephalic. No temporal or scalp tenderness. EYES: Pupils equal round and reactive. Extraocular motions intact. No scleral icterus. No injection or drainage. NECK: Trachea midline. CARDIOVASCULAR: Regular rate and rhythm without murmurs, gallops, or rubs. RESPIRATORY: Clear to auscultation. Breath sounds equal bilaterally. No wheezes , rales, or rhonchi. GASTROINTESTINAL: Abdomen soft, non-tender, nondistended. No hepato-splenomegaly , or palpable masses. No guarding. WESTERN PHILOSOPHY PROFESSOR: bimanual exam differed at this time, no overt bleeding, no blood or discharged noted to sheets/pads MUSCULOSKELETAL: Extremities without clubbing, cyanosis, mild edema to L thigh NEUROLOGICAL: Awake and alert. Laboratory Laboratory Tests Test 12/13/16 05:33 White Blood Count 12.7 Red Blood Count 3.32 Hemoglobin 9.8 Hematocrit 29.0 Mean Corpuscular Volume 87.2 Mean Corpuscular Hemoglobin 29.5 Mean Corpuscular Hemoglobin 33.8 Concent Red Cell Distribution Width 13.2 Platelet Count 575 Mean Platelet Volume 6.1 Neutrophils (%) (Auto) 79.9 Lymphocytes (%) (Auto) 12.6 Monocytes (%) (Auto) 6.9 Eosinophils (%) (Auto) 0.4 Basophils (%) (Auto) 0.2 Neutrophils # (Auto) 10.1 Lymphocytes # (Auto) 1.6 Monocytes # (Auto) 0.9 Eosinophils # (Auto) 0.1 Basophils # (Auto) 0.0 CBC Comment DIFF FINAL Differential Comment Date/Time Procedure Status Source Growth 12/11/16 22:06 Aerobic Blood Culture - Preliminary Resulted Blood Peripheral NO GROWTH IN 2 DAYS 12/11/16 22:06 Anaerobic Blood Culture - Preliminary Resulted Blood Peripheral NO GROWTH IN 2 DAYS Result Diagram: 12/13/16 0533 12/11/162154 Imaging Last Impressions Chest X-Ray 12/11/162106 Signed Impressions: Service Date/Time: Sunday, December 11, 2016 21:27 - CONCLUSION: No acute disease. Roberto Rene MD Abdomen/Pelvis CT 12/11/162106 Signed Impressions: Service Date/Time: Sunday, December 11, 2016 22:49 - CONCLUSION: 1. The left iliacis muscle is diffusely enlarged with multiple low-density pockets characteristic for multiple abscesses. The largest pocket measures approximately 4.6 cm. 2. 9 mm right renal cyst. Rbuen Manriquez MD Lower Extremity Ultrasound 12/11/16 0000 Signed Impressions: Service Date/Time: Sunday, December 11, 2016 22:22 - CONCLUSION: No evidence of DVT. Ruben Manriquez MD Assessment and Plan Problem List: (1) Muscle abscess Status: Acute Plan: Explained to pt and her that building guard deputy sheriff/onc does not have any other suggestions at this point. I explained that IR has been consulted to drain the abscess and hopefully this will help to relieve her pain, the interventional radiologist will place a drain if it is necessary. I explained that ID has also been consulted and they will assist with management of her sepsis. IR has been consulted for drainage of abscess and possible drain placement...pt is NPO ID has been consulted ABX per EMR Percocet for pain Pt has a follow up appt with her building guard deputy sheriff/onc in [facility] in February and she will keep that appt. Thank you for consult. (2) Sepsis Status: Acute Plan: ID has been consulted currently she is on ABX per EMR (3) Endometrial cancer Status: Resolved Plan: Pt will follow up with her building guard deputy sheriff/onc Dr. Farida Torres in [facility] in February He did a post op exam on 11/28/16 and felt she was healing well in the absent of any overt vaginal bleeding, no other intervention is needed. H/H is stable continue to monitor Discussed Condition With Dr. Celis and he is in agreement with this plan, any further orders will follow. Chapo Vergara Dec 13, 2016 12:08
[2016-12-13] MEDS ORDERED: PHARMACY ORDERED LAB XX ONE (13:45)
[2016-12-13] MEDS ORDERED: MIDAZOLAM HCL 5 MG/5 ML VIAL ONE (14:18)
[2016-12-13] MEDS ORDERED: fentaNYL CITRATE 250 MCG/5 ML AMP ONE (14:18)
--- NOTE | 2016-12-13 16:53 | RADRPT ---
EXAM DATE/TIME: 12/13/2016 15:00 [place] COMPARISON: No previous studies available for comparison. INDICATIONS : Left sided iliacus muscle abscess. SEDATION TIME: 30 minutes MEDICATION(S): 1.) 5 mg midazolam (Versed) IV 2.) 250 mcg fentanyl (Sublimaze) IV DEVICE(S): 1.) 8 Fr Skater Locking 2.) 18 gauge [place] blunt needle 3.) 22 gauge Spinal needle FLUID: Total volume of 30 cc of cevallso cloudy fluid was removed. MEDICAL HISTORY : Uterine cancer. SURGICAL HISTORY : Tubal ligation. Hysterectomy. section. ENCOUNTER: Initial ACUITY: 3 days PAIN SCORE: 9/10 LOCATION: Left Pelvic PROCEDURE: 1.) Conscious sedation with continuous EKG and oximetry monitoring. PROCEDURE : 1. CT guided drainage of the left iliopsoas abscess. 2. Conscious sedation with continuous EKG and oximetry monitoring. The risks, benefits and alternatives to the procedure were explained and verbal and written consent w as obtained. The site was prepped in sterile fashion. Full sterile technique was used, including ca p, mask, sterile gloves and gown and a large sterile sheet. Hand hygiene and 2% chlorhexidine and/or betadine/alcohol prep was utilized per protocol for cutaneous antisepsis. The skin and subcutaneous tissues were infiltrated with local anesthetic solution. Using CT guidance the prescribed site was localized. Abscess cavity was entered with an 18 gauge taina nt needle. Definitive 8-Swedish drainage catheter was placed over wire. Obvious pus was removed and sent for stat Gram stain and culture. The patient tolerated the procedure well and there were no complications. Conscious sedation was per formed with the prescribed dosages and duration as above. The patient tolerated the procedure well an d there were no complications. EKG and oximetry remained stable throughout the procedure. The patient was sent to post anesthesia recovery in stable condition. CONCLUSION: Uncomplicated CT guided drainage of the left iliopsoas abscess. Bear Mclean MD FACR on December 13, 2016 at 16:47 Board Certified Radiologist. This report was verified electronically.
[2016-12-13] MEDS: buPROPion HCL 150 MG SUSTAINED RELEASE TAB PO SCH (21:55)
[2016-12-13] MEDS: DOCUSATE SODIUM 100 MG CAP PO SCH (21:55)
[2016-12-13] MEDS: VANCOMYCIN INJ 1,500 MG in SODIUM CHLORID 0.9% 500 ML INJ 500 ML IV SCH (22:00)
[2016-12-14] VITALS: BP 126/60; PULSE 104; RESP 17; TEMP 101.3; O2SAT 97
[2016-12-14] MEDS: metroNIDAZOLE 500 MG INJ 100 ML IV SCH ×3 (01:17→17:00)
[2016-12-14] MEDS: HYDROmorphone HCL PF 2 MG/ML VIAL IV PUSH PRN ×5 (01:18→18:33)
[2016-12-14] MEDS: oxyCODONE/ACETAMINOPHEN 10 MG/325 MG TAB PO PRN ×3 (03:56→21:25)
[2016-12-14 04:00] VITALS: BP 120/64; PULSE 82; RESP 17; TEMP 98.7; O2SAT 97
[2016-12-14] MEDS: PIPERACIL-TAZO 4.5 GM PREMIX 100 ML IV SCH ×4 (05:48→23:41)
[2016-12-14] MEDS: DEXT 5%-NACL 0.45% 1000 ML INJ 1,000 ML IV SCH ×2 (05:49→17:00)
[2016-12-14] MEDS: SODIUM CHLORIDE 0.9% FLUSH 5 ML FLUSH FLUSH SCH ×2 (07:58→21:00)
[2016-12-14 08:00] VITALS: BP 110/57; PULSE 106; RESP 17; TEMP 99.6; O2SAT 96
[2016-12-14] MEDS: PANTOPRAZOLE SOD 40 MG DELAYED RELEASE TAB PO SCH (09:46)
[2016-12-14] MEDS: CITALOPRAM HYDROBROMIDE 20 MG TAB PO SCH (09:46)
[2016-12-14] MEDS: buPROPion HCL 150 MG SUSTAINED RELEASE TAB PO SCH ×2 (09:46→21:24)
[2016-12-14] MEDS: ASPIRIN 81 MG CHEW TAB CHEW SCH (09:46)
[2016-12-14] MEDS: DOCUSATE SODIUM 100 MG CAP PO SCH ×2 (09:46→21:24)
--- NOTE | 2016-12-14 11:37 | HHI.PR ---
Subjective History of Present Illness feels little better still painful/pain meds are helping No N/V spiked temp last night less anxious No cough or sputum No CP or SOB No diarrhea offers no c/o is at bedside Vitals/Results Intake & Output 12/13/16 12/13/16 12/14/16 15:00 23:00 07:00 Intake Total 645 ml 868 ml 3971 ml Output Total 500 ml 460 ml Balance 645 ml 368 ml 3511 ml Intake Oral 240 ml 3000 ml IV Total 645 ml 628 ml 971 ml Output Urine Total 500 ml 350 ml Drainage Total 110 ml Vital Signs Vital Signs Date Time Temp Pulse Resp B/P Pulse Ox O2 Delivery O2 Flow Rate FiO2 12/14/16 08:00 99.6 106 17 110/57 96 12/14/16 04:00 98.7 82 17 120/64 97 12/14/16 01:21 18 12/14/16 00:00 101.3 104 17 126/60 97 12/13/16 20:00 96.4 73 17 96/53 94 12/13/16 17:49 21 12/13/16 17:00 92 20 101/56 94 12/13/16 16:56 98.9 89 20 92 12/13/16 16:30 101 20 108/67 94 12/13/16 16:13 101.0 97 20 117/53 94 12/13/16 16:00 96.5 80 17 99/52 96 12/13/16 14:06 18 12/13/16 12:00 96.5 80 17 99/52 96 CBC/BMP: 12/13/16 0533 12/14/16 0452 Lab Results Laboratory Tests Test 12/13/16 12/14/16 13:09 04:52 Vancomycin Level Trough 7.1 MCG/ML Creatinine 0.46 MG/DL Estimat Glomerular Filtration 140 ML/MIN Rate Microbiology Microbiology 12/13/16 Gram Stain - Final, Resulted 12/13/16 Wound Culture, Resulted Pending Physical Exam General General Appearance: No Acute Distress, Anxious Eyes Eye Exam: Pupils Equal, Sclera White, Extraocular Movement Intact Ears & Nose Ears & Nose Exam: Nasal Mucosa [place] Throat Throat Exam: Oral Mucosa [place] & Moist Neck Neck Exam: Neck Supple, Trachea Midline Pulmonary Resp Exam: Clear Bilaterally, Breath Sounds Equal Cardiology CV Exam: Regular, Normal Sinus Rhythm Gastrointestinal/Abdomen GI Exam: Soft, Non-Tender Genitourinary Remarks Percutaneous drainage catheter in pace pinkish/bloody fluid Integumentary Skin Exam: Warm, Dry Extremeties Extremities Exam: No Edema, Pedal Pulses Palpable Neurologic Neuro Exam: Alert, Awake, Oriented, Speech Clear, Moving All Extremities Psychiatric Psych Exam: Appropriate Responses PUD Prophylasis PUD Prophylaxis: Protonix Assessment/Plan Assessment/Plan ASSESSMENT AND PLAN 1. Early Sepsis on admission 2. Left iliacus muscle diffuse multiple abscesses 3. Leukocytosis 4. Sciatica 5. Moderate protein calorie malnutrition 6. History of recent uterine cancer s/p hysterectomy with oophorectomy. 7. Anxiety disorder 8. Recent history of tobacco abuse. PLAN empiric IV abx , zosyn/vano s/p percutameous drainage by IR . wound c/s [p] blood c/s neg so far analgesic , percocet/IV dilaudid BDC MANAGER onc input appreciated We will monitor her blood work /CBC . ID consult awaited cont antidepressnts xanax prn stop smoking PUD prophylaxis with Protonix DVT prophylaxis,sq lovenox d/w pt & her at bedside am labs angelina f/u Milla Garland MD Dec 14, 2016 11:37
[2016-12-14] MEDS: VANCOMYCIN INJ 1,500 MG in SODIUM CHLORID 0.9% 500 ML INJ 500 ML IV SCH ×2 (11:49→21:24)
[2016-12-14 12:00] VITALS: BP 87/54; PULSE 81; RESP 17; TEMP 98.5; O2SAT 95
[2016-12-14 16:00] VITALS: BP 106/53; PULSE 89; RESP 17; TEMP 96.5; O2SAT 95
[2016-12-14 20:00] VITALS: BP 97/49; PULSE 84; RESP 20; TEMP 99.2; O2SAT 95
[2016-12-14] MEDS ORDERED: ENOXAPARIN SODIUM 40 MG/0.4 ML SYRINGE SQ SCH (23:00)
[2016-12-15] VITALS: BP 98/58; PULSE 80; RESP 20; TEMP 98.2; O2SAT 96
[2016-12-15] MEDS: metroNIDAZOLE 500 MG INJ 100 ML IV SCH ×4 (00:53→23:36)
[2016-12-15] MEDS: HYDROmorphone HCL PF 2 MG/ML VIAL IV PUSH PRN ×3 (01:00→17:38)
[2016-12-15] MEDS: ALPRAZolam 0.5 MG TAB PO PRN ×2 (02:34→11:00)
[2016-12-15] MEDS: DEXT 5%-NACL 0.45% 1000 ML INJ 1,000 ML IV SCH ×2 (05:47→13:00)
[2016-12-15] MEDS: PIPERACIL-TAZO 4.5 GM PREMIX 100 ML IV SCH ×3 (05:47→18:00)
[2016-12-15] MEDS: oxyCODONE/ACETAMINOPHEN 10 MG/325 MG TAB PO PRN ×3 (05:47→23:38)
[2016-12-15 06:09] LABS: HEMATOCRIT 24.8 % (35.0-46.0); MEAN CELL VOLUME 86.1 FL (80.0-100.0); MEAN CORPUSCULAR HEMOGLOBIN 29.9 PG (27.0-34.0); MEAN CORPUSCULAR HGB CONC 34.7 % (32.0-36.0); PLATELET COUNT 538 TH/MM3 (150-450); RED BLOOD COUNT 2.88 MIL/MM3 (4.00-5.30); RED CELL DISTRIBUTION WIDTH 13.2 % (11.6-17.2); REVIEW FLAG FINAL; WHITE BLOOD COUNT 11.9 TH/MM3 (4.0-11.0)
[2016-12-15 06:32] LABS: POTASSIUM 2.6 MEQ/L (3.5-5.1)
[2016-12-15] MEDS ORDERED: POTASSIUM CL 40 MEQ/30 ML LIQ UDC PO ONE (06:45)
[2016-12-15] MEDS ORDERED: POTASSIUM CHLOR 20 MEQ PREMIX 100 ML IV ONE (07:00)
[2016-12-15] MEDS: SODIUM CHLORIDE 0.9% FLUSH 5 ML FLUSH FLUSH SCH ×2 (07:36→21:00)
[2016-12-15] MEDS: PANTOPRAZOLE SOD 40 MG DELAYED RELEASE TAB PO SCH (07:37)
[2016-12-15] MEDS: CITALOPRAM HYDROBROMIDE 20 MG TAB PO SCH (07:37)
[2016-12-15] MEDS: DOCUSATE SODIUM 100 MG CAP PO SCH ×2 (07:37→21:00)
[2016-12-15] MEDS: ASPIRIN 81 MG CHEW TAB CHEW SCH (07:37)
[2016-12-15] MEDS: buPROPion HCL 150 MG SUSTAINED RELEASE TAB PO SCH ×2 (07:38→21:00)
[2016-12-15 08:00] VITALS: BP_SYST 95; BP_SYST 99; BP_DIAS 52; BP_DIAS 55; PULSE 74; RESP 16; TEMP 98; O2SAT 93
[2016-12-15] MEDS ORDERED: PHARMACY ORDERED LAB XX ONE (09:45)
[2016-12-15] MEDS: VANCOMYCIN INJ 1,500 MG in SODIUM CHLORID 0.9% 500 ML INJ 500 ML IV SCH (10:08)
--- NOTE | 2016-12-15 10:35 | HHI.PR ---
Subjective History of Present Illness feels little better still painful/pain meds are helping No N/V spiked temp last night less anxious No cough or sputum No CP or SOB No diarrhea offers no c/o is at bedside Vitals/Results Intake & Output 12/14/16 12/14/16 12/15/16 14:59 22:59 06:59 Intake Total 240 ml 3040 ml 1282 ml Output Total 800 ml 1030 ml 1650 ml Balance -560 ml 2010 ml -368 ml Intake Oral 240 ml 1440 ml 240 ml IV Total 1600 ml 1042 ml Output Urine Total 800 ml 1000 ml 1650 ml Drainage Total 30 ml 0 ml # Bowel Movements 1 Vital Signs Vital Signs Date Time Temp Pulse Resp B/P Pulse Ox O2 Delivery O2 Flow Rate FiO2 12/15/16 08:00 98.0 74 16 95/52 93 99/55 12/15/16 00:00 98.2 80 20 98/58 96 12/14/16 20:00 99.2 84 20 97/49 95 12/14/16 16:00 96.5 89 17 106/53 95 12/14/16 12:00 98.5 81 17 87/54 95 CBC/BMP: 12/15/16 0546 12/15/16 0546 Lab Results Laboratory Tests Test 12/15/16 05:46 White Blood Count 11.9 TH/MM3 Red Blood Count 2.88 MIL/MM3 Hemoglobin 8.6 GM/DL Hematocrit 24.8 % Mean Corpuscular Volume 86.1 FL Mean Corpuscular Hemoglobin 29.9 PG Mean Corpuscular Hemoglobin 34.7 % Concent Red Cell Distribution Width 13.2 % Platelet Count 538 TH/MM3 Mean Platelet Volume 5.8 FL Sodium Level 137 MEQ/L Potassium Level 2.6 MEQ/L Chloride Level 98 MEQ/L Carbon Dioxide Level 33.0 MEQ/L Anion Gap 6 MEQ/L Blood Urea Nitrogen 3 MG/DL Creatinine 0.46 MG/DL Estimat Glomerular Filtration 140 ML/MIN Rate Random Glucose 130 MG/DL Calcium Level 8.0 MG/DL Physical Exam General General Appearance: No Acute Distress, Anxious Eyes Eye Exam: Pupils Equal, Sclera White, Extraocular Movement Intact Ears & Nose Ears & Nose Exam: Nasal Mucosa [place] Throat Throat Exam: Oral Mucosa [place] & Moist Neck Neck Exam: Neck Supple, Trachea Midline Pulmonary Resp Exam: Clear Bilaterally, Breath Sounds Equal Cardiology CV Exam: Regular, Normal Sinus Rhythm Gastrointestinal/Abdomen GI Exam: Soft, Non-Tender Genitourinary Remarks Percutaneous drainage catheter in pace pinkish/bloody fluid Integumentary Skin Exam: Warm, Dry Extremeties Extremities Exam: No Edema, Pedal Pulses Palpable Neurologic Neuro Exam: Alert, Awake, Oriented, Speech Clear, Moving All Extremities Psychiatric Psych Exam: Appropriate Responses PUD Prophylasis PUD Prophylaxis: Protonix Assessment/Plan Assessment/Plan ASSESSMENT AND PLAN 1. Early Sepsis on admission 2. Left iliacus muscle diffuse multiple abscesses 3. Leukocytosis 4. Sciatica 5. Moderate protein calorie malnutrition 6. History of recent uterine cancer s/p hysterectomy with oophorectomy. 7. Anxiety disorder 8. Recent history of tobacco abuse. PLAN empiric IV abx , zosyn/vano s/p percutameous drainage by IR . wound c/s [p] blood c/s neg so far analgesic , percocet/IV dilaudid [employer] onc input appreciated We will monitor her blood work /CBC . ID consult awaited cont antidepressnts xanax prn stop smoking PUD prophylaxis with Protonix DVT prophylaxis,sq lovenox d/w pt & her at bedside am labs angelina f/u Milla Garland MD Dec 15, 2016 10:35
[2016-12-15 10:45] LABS: BICARBONATE 31.1 MEQ/L (21.0-32.0); POTASSIUM 3.1 MEQ/L (3.5-5.1); VANCOMYCIN TROUGH 5.6 MCG/ML (5.0-10.0)
[2016-12-15 11:59] LABS: HEMATOCRIT 24.3 % (35.0-46.0); REVIEW FLAG FINAL
[2016-12-15 12:00] VITALS: BP 102/56; PULSE 76; RESP 14; TEMP 97.9; O2SAT 94
--- NOTE | 2016-12-15 12:48 | MB ---
cc: CARA GALAVIZ MD, KELLY L. MD cc: Dr. Farida Torres MD [address] [place] [address] DATE OF CONSULTATION: 12/15/2016 REASON FOR CONSULTATION Recent surgery for gynecologic cancer. REASON FOR ADMISSION Left psoas muscle abscess. This patient is seen. Findings, test results, x-rays and history are reviewed by me. She is counseled by me and examined by me in conjunction with our nurse practitioner (Chapo Vergara). I agree with her findings, assessment and plan of care. HISTORY OF PRESENT ILLNESS A 56-year-old female who underwent robotic laparoscopic hysterectomy and lymph node dissection for endometrial cancer. This was done a few weeks back by Dr. Farida Torres at [facility] in [place]. She has family down in that part of [place] and had surgery there to be in close proximity with her family. She presents reporting worsening left-sided pain and left leg weakness, and was found on exam and imaging to have a fluid collection with some air pockets in the left pelvis overlying the psoas muscle. She was febrile and had a white count elevation. It was interpreted as parapsoas abscess. We have been asked for input regarding management. We agree completely with management. She has been cultured, started on broad-spectrum antibiotics and has undergone a CT-directed aspiration and indwelling drain placement. She has not been febrile since midnight on December 13. Vital signs are pulse 80-89, respirations 16-20, blood pressure 87-110/49-58. In's and out's 4562/3480. White count on admission 18.6 improved to 11.9. Most recent H&H are 8.6 and 24.8. Potassium is low to be repleted at 2.6. BUN and creatinine are 3 and 0.46. Microbiology: Thus far cultures are negative to date. Blood cultures no growth x3 days. Abscess culture no growth in 24 hours. PHYSICAL EXAMINATION She is alert and oriented x3, in no acute distress, talkative. Reports that she has improved in the way she has felt each day that she has been here, even more so since the drain has been placed. She is now able to start bearing some weight on her left leg and although there is still pain, it is less intense than had previously been the case. On exam her abdomen is nonacute. The drain site is clean. Appropriate expected tenderness. There is no [employer] bleeding. No overt edema or palpable cords in the extremities PAST MEDICAL HISTORY, PAST SURGICAL HISTORY, FAMILY HISTORY, MEDICATIONS, ALLERGIES, REVIEW OF SYSTEMS: Are all reviewed and as are documented in the chart. I did not decipher any additional information or have any new information to add to these findings. DISCUSSION Time is spent in discussion with her, reviewing the findings in her case to date. The reason for [employer] oncology consultation I presume is because her recent surgery was laparoscopic robotic in nature and for a gynecologic cancer. I explained to her that with pelvic surgery, especially with pelvic lymph node biopsies of pelvic lymph node dissection there may be some lymphatic fluid or serous fluid or blood that can collect in those regions. This can get secondarily infected. There is a suture line at the vaginal cuff and that transvaginal entry of bacteria or transcutaneous or possible infections are known to potentially occur after any surgery. I agree wholeheartedly with the management. She has been cultured, started on broad-spectrum antibiotics and the abscess has been addressed with an indwelling drain. Questions were asked regarding the duration of that drain, explained that in all probability she will have a follow-up CAT scan to confirm that the abscess has completely resolved and she will stay on antibiotics during that time period until the drain can be removed, and it would be removed after the abscess was completely resolved. It is explained that she does not necessarily have to stay in the hospital as this can be managed as an outpatient once she is feeling well enough that her primary medical team believes she is okay for discharge to home. With respect to cancer management all recommendations will be deferred to her [employer] oncologist (Dr. Farida Torres), and she is scheduled for follow-up with him at sometime in the next week or two. We are pleased to make her acquaintance. I am sorry she is having this problem. I am pleased to see that she is feeling better. From a gynecologic oncology standpoint and postoperative standpoint or management of the abscess, we have no further recommendations. Her care is excellent. Grateful for the excellent care and we hope she continues to feel better. Thank for the consultation. We have no further recommendations from a postoperative or gynecologic oncology standpoint or from the standpoint of management of the parapsoas abscess. The management is excellent. We will sign off on her care at this point. Available if needed. MD AMALIA Cifuentes /8:46 AM /12:19 PM
[2016-12-15 16:00] VITALS: BP 100/54; PULSE 78; RESP 14; TEMP 97.8; O2SAT 95
--- NOTE | 2016-12-15 17:43 | RADRPT ---
EXAM DATE/TIME: 12/15/2016 16:17 [facility] COMPARISON: CT ABDOMEN & PELVIS W CONTRAST, December 11, 2016, 22:49. INDICATIONS : Evaluate abscess drainage placement. ORAL CONTRAST: No oral contrast ingested. RADIATION DOSE: 13.74 CTDIvol (mGy) MEDICAL HISTORY : Uterine cancer SURGICAL HISTORY : Tubal ligation. Hysterectomy. section. ENCOUNTER: Initial ACUITY: 1 day PAIN SCALE: 5/10 LOCATION: pelvis left TECHNIQUE: Volumetric scanning and 3D reconstructions of the pelvis were performed. Using automated exposure co ntrol and adjustment of the mA and/or kV according to patient size, radiation dose was kept as low as reasonably achievable to obtain optimal diagnostic quality images. FINDINGS: The abscess catheter has retracted into the overlying soft tissues of the anterior bowel wall. No sig nificant residual fluid collection is observed. There is edema seen within the iliacus muscle as well as the psoas muscle. CONCLUSION: The abscess drain has pulled out of the original location. There is no residual fluid percutaneous ac cessible for drainage at this time. There remains edema throughout the iliacus and psoas muscles. If the abscess reaccumulates percutaneous drainage can be entertained at that time. Michi Gee Jr., MD on December 15, 2016 at 17:34 Board Certified Radiologist. This report was verified electronically.
[2016-12-15 20:00] VITALS: BP 111/65; PULSE 77; RESP 20; TEMP 98; O2SAT 96
--- NOTE | 2016-12-15 21:13 | MB ---
cc: GWEN GARAY MD DATE OF CONSULTATION 12/15/[address] Garland REASON FOR CONSULTATION Left psoas abscess. HISTORY OF PRESENT ILLNESS This is a 56-year-old white female who is status post surgery for endometrial cancer including lymph node dissection. The patient underwent robotic laparoscopic hysterectomy. The surgery was performed on 11/06/2016. She subsequently was followed up and was noted to be doing well. However, she started developing some pain in the left leg, which she felt might have been sciatic pain, and also chills and fever and nausea and vomiting. The patient experienced difficulty ambulating because of the pain in her leg five days ago and she presented to the emergency department for evaluation. She was seen by her primary care physician about a week ago when she had some discomfort at the left abdomen and she was put on ciprofloxacin. She took the ciprofloxacin for a few days and suddenly developed a rash and was not feeling well with nausea and vomiting and the antibiotic was stopped. She was seen in the emergency department here on 12/12/2016, one day after she stopped the antibiotic. She was having pain at a level of 8/10 intensity. She was noted to have marked swelling at the left lower abdomen and the left lower extremity was more swollen as well. She underwent initial evaluation including ultrasound of the left lower extremity which showed no evidence of DVT. CT scan of the abdomen and pelvis showed left iliacus muscle to be diffusely enlarged with multiple low-density pockets characteristic for multiple abscesses with a large pocket measuring 4.6 cm. The patient went for drainage of the fluid collection at the left iliopsoas region. Culture was taken and the culture has no growth at 48 hours. Blood cultures from 12/11 has no growth. White blood cell count was elevated when she was admitted. It was 18.6 and she had temperature of 101.7. Currently, the patient feels depressed. She is tired of being sick. She feels that the pain in her left leg which she mentioned to feel like sciatic is returning. A drainage catheter is in the left pelvic region and with the entry at the lower abdomen on the left. There is a chocolate/rust colored drainage in the drainage catheter. White blood cell count is now 11.9. This consultation is requested for management of infection. PAST MEDICAL HISTORY 1. Uterine cancer, 2. Anxiety disorder, 3. Hypoglycemia 4. x3 5. Recent hysterectomy and oophorectomy. 6. Right rotator cuff repair. ALLERGIES NO KNOWN DRUG ALLERGIES. MEDICATIONS 1. Vancomycin. 2. Piperacillin/Tazobactam 3. Celexa 4. Wellbutrin 5. Percocet 10 p.r.n. 6. Dilaudid p.r.n. 7. Aspirin. 8. Protonix. 9. Xanax. 10. Metronidazole. SOCIAL HISTORY The patient is . Occasional alcohol. No illicit drugs. No tobacco use. FAMILY HISTORY Noncontributory. REVIEW OF SYSTEMS Pertinent features mentioned above in history of present illness. PHYSICAL EXAMINATION GENERAL: This is a well-developed female who is awake and alert and in no acute distress. She appears chronically ill. VITAL SIGNS: Temperature 97.9, BP 102/56, respirations 14, heart rate 76. HEENT: Head atraumatic. Extraocular movements grossly intact. No icterus. Oropharynx - moist mucosa without lesions. NECK: Supple without adenopathy or swelling. LUNGS: Clear breath sounds HEART: Regular rate and rhythm. No murmurs. No rubs. No gallops. ABDOMEN: Bowel sounds present, soft. Tenderness at the left lower abdomen around the area where the drainage catheter exits the lower abdomen. There is redness around the catheter entry. RECTAL: Not performed. EXTREMITIES: No clubbing, cyanosis or edema. Pulses 2+ symmetrically upper and lower extremities. SKIN: No rash. NEUROLOGIC: Nonfocal. PSYCHIATRIC: the patient has depressed affect. LABORATORY DATA WBC 11.9, platelets 538, hemoglobin 8.2, creatinine 0.47, BUN two, sodium 137. IMPRESSION 1. Iliopsoas abscess. 2. Leukocytosis secondary to number one. 3. Post surgery for endometrial cancer RECOMMENDATIONS 1. Continue vancomycin 2. Continue piperacillin/Tazobactam 3. Continue metronidazole 4. Monitor the wound culture from 12/13 5. Obtain new wound culture since the previous culture appears to have no growth 6. Follow the drainage from the abscess and consideration for assessing to see if adequate drainage is occurring. Thank you for this consultation. The patient will be monitored and the cultures will be followed. Antibiotic will be adjusted depending on the cultures and clinical response if no culture becomes available for guiding antibiotic treatment. Gwen Garay MD FD/ /2:27 PM /8:39 PM [facility]ITAL[facility]
[2016-12-16] VITALS: BP 118/72; PULSE 84; RESP 20; TEMP 99.3; O2SAT 97
[2016-12-16] MEDS: PIPERACIL-TAZO 4.5 GM PREMIX 100 ML IV SCH ×5 (02:12→22:34)
[2016-12-16] MEDS: VANCOMYCIN INJ 1,250 MG in SODIUM CHLOR 0.9% 250 ML INJ 250 ML IV SCH ×3 (02:12→17:26)
[2016-12-16] MEDS: DEXT 5%-NACL 0.45% 1000 ML INJ 1,000 ML IV SCH ×2 (02:15→07:57)
[2016-12-16] MEDS: HYDROmorphone HCL PF 2 MG/ML VIAL IV PUSH PRN ×2 (02:20→18:22)
[2016-12-16 03:58] LABS: HEMATOCRIT 26.9 % (35.0-46.0); MEAN CELL VOLUME 87.6 FL (80.0-100.0); MEAN CORPUSCULAR HEMOGLOBIN 29.5 PG (27.0-34.0); MEAN CORPUSCULAR HGB CONC 33.7 % (32.0-36.0); PLATELET COUNT 624 TH/MM3 (150-450); RED BLOOD COUNT 3.08 MIL/MM3 (4.00-5.30); RED CELL DISTRIBUTION WIDTH 13.2 % (11.6-17.2); REVIEW FLAG FINAL; WHITE BLOOD COUNT 9.3 TH/MM3 (4.0-11.0)
[2016-12-16] MEDS: oxyCODONE/ACETAMINOPHEN 10 MG/325 MG TAB PO PRN ×3 (07:54→22:33)
[2016-12-16] MEDS: buPROPion HCL 150 MG SUSTAINED RELEASE TAB PO SCH ×2 (07:54→20:30)
[2016-12-16] MEDS: PANTOPRAZOLE SOD 40 MG DELAYED RELEASE TAB PO SCH (07:54)
[2016-12-16] MEDS: DOCUSATE SODIUM 100 MG CAP PO SCH ×2 (07:55→20:30)
[2016-12-16] MEDS: ASPIRIN 81 MG CHEW TAB CHEW SCH (07:55)
[2016-12-16] MEDS: CITALOPRAM HYDROBROMIDE 20 MG TAB PO SCH (07:55)
[2016-12-16] MEDS: metroNIDAZOLE 500 MG INJ 100 ML IV SCH ×2 (07:56→16:37)
[2016-12-16] MEDS: SODIUM CHLORIDE 0.9% FLUSH 5 ML FLUSH FLUSH SCH ×2 (07:56→20:30)
[2016-12-16 08:00] VITALS: BP 112/55; PULSE 63; RESP 12; TEMP 97.8; O2SAT 96
[2016-12-16] MEDS ORDERED: PHARMACY ORDERED LAB XX ONE (09:45)
[2016-12-16 12:00] VITALS: BP 96/53; PULSE 74; RESP 14; TEMP 96.9; O2SAT 95
[2016-12-16] MEDS: ALPRAZolam 0.5 MG TAB PO PRN ×2 (13:30→22:32)
--- NOTE | 2016-12-16 15:37 | HHI.PR ---
Subjective Interval History Alert, oriented, complaining of left groin pain, reasonably well-controlled with current pain medications, difficulty ambulating because of the pain Review of Systems Constitutional Constitutional Remarks Pain as above, poor appetite, consistent reviewed otherwise negative Vitals/Results Intake & Output 12/15/16 12/15/16 12/16/16 15:00 23:00 07:00 Intake Total 1491 ml 867 ml 1313 ml Output Total 730 ml 850 ml 2200 ml Balance 761 ml 17 ml -887 ml Intake Oral 480 ml 240 ml 480 ml IV Total 1011 ml 627 ml 833 ml Output Urine Total 700 ml 850 ml 2200 ml Drainage Total 30 ml # Bowel Movements 1 1 Vital Signs Vital Signs Date Time Temp Pulse Resp B/P Pulse Ox O2 Delivery O2 Flow Rate FiO2 12/16/16 12:00 96.9 74 14 96/53 95 12/16/16 08:00 97.8 63 12 112/55 96 12/16/16 00:00 99.3 84 20 118/72 97 12/15/16 20:00 98.0 77 20 111/65 96 12/15/16 16:00 97.8 78 14 100/54 95 CBC/BMP: 12/16/16 0326 12/16/16 0326 Lab Results Laboratory Tests Test 12/16/16 12/16/16 03:26 09:45 White Blood Count 9.3 TH/MM3 Red Blood Count 3.08 MIL/MM3 Hemoglobin 9.1 GM/DL Hematocrit 26.9 % Mean Corpuscular Volume 87.6 FL Mean Corpuscular Hemoglobin 29.5 PG Mean Corpuscular Hemoglobin 33.7 % Concent Red Cell Distribution Width 13.2 % Platelet Count 624 TH/MM3 Mean Platelet Volume 5.9 FL Creatinine 0.41 MG/DL Estimat Glomerular Filtration 159 ML/MIN Rate Vancomycin Level Trough 9.5 MCG/ML Physical Exam General General Appearance: No Acute Distress, Anxious Eyes Eye Exam: Pupils Equal, Extraocular Movement Intact Eye Remarks Sclerae pale Ears & Nose Ears & Nose Exam: Nasal Mucosa [place] Throat Throat Exam: Oral Mucosa [place] & Moist Neck Neck Exam: Neck Supple, Trachea Midline Pulmonary Resp Exam: Clear Bilaterally, Breath Sounds Equal Cardiology CV Exam: Regular, Normal Sinus Rhythm Gastrointestinal/Abdomen GI Exam: Soft GI Remarks Tender left lower quadrant Integumentary Skin Exam: Warm, Dry Extremeties Extremities Exam: No Edema, Pedal Pulses Palpable Neurologic Neuro Exam: Alert, Awake, Oriented, Speech Clear, Moving All Extremities Psychiatric Psych Exam: Appropriate Responses PUD Prophylasis PUD Prophylaxis: Protonix Assessment/Plan Assessment/Plan ASSESSMENT AND PLAN . Early Sepsis on admssion . Left iliacus/psoas muscle diffuse multiple abscesses . Leukocytosis . Sciatica . Moderate protein calorie malnutrition . History of recent uterine cancer s/p hysterectomy with oophorectomy. . Anxiety disorder . Recent history of tobacco abuse. . s/p percutameous drainage by IR . PLAN empiric IV abx , zosyn/vano wound culture to follow blood cultures negative so far analgesic , percocet/IV dilaudid Gynecology , infectious disease and oncology following, thank you monitor CBC . cont antidepressant xanax prn stop smoking PUD prophylaxis with Protonix DVT prophylaxis,sq lovenox d/w patient Discussed with nurse Nikky Barrett MD Dec 16, 2016 15:36
[2016-12-16 16:00] VITALS: BP 126/66; PULSE 76; RESP 14; O2SAT 96
[2016-12-16] MEDS: POTASSIUM CHLORIDE 20 MEQ CONTROLLED RELEASE TAB PO SCH (16:37)
[2016-12-16 20:00] VITALS: BP 123/62; PULSE 99; RESP 18; TEMP 97; O2SAT 97
[2016-12-17] VITALS: BP_SYST 107; BP_SYST 118; BP_DIAS 58; BP_DIAS 59; PULSE 62; PULSE 76; RESP 18; TEMP 97; TEMP 98.2; O2SAT 95; O2SAT 96
[2016-12-17] MEDS: metroNIDAZOLE 500 MG INJ 100 ML IV SCH ×3 (00:18→15:47)
[2016-12-17] MEDS: HYDROmorphone HCL PF 2 MG/ML VIAL IV PUSH PRN ×2 (00:39→12:29)
[2016-12-17] MEDS: VANCOMYCIN INJ 1,250 MG in SODIUM CHLOR 0.9% 250 ML INJ 250 ML IV SCH (02:39)
[2016-12-17] MEDS: oxyCODONE/ACETAMINOPHEN 10 MG/325 MG TAB PO PRN ×4 (04:33→21:28)
[2016-12-17] MEDS: PIPERACIL-TAZO 4.5 GM PREMIX 100 ML IV SCH ×3 (04:33→17:06)
[2016-12-17] MEDS: NACL 0.45% IV SCH ×2 (04:35→21:12)
[2016-12-17] MEDS: DEXT 5% IV SCH ×2 (04:35→21:12)
[2016-12-17] MEDS: POTASSIUM CHLORIDE IV SCH ×2 (04:35→21:12)
[2016-12-17 05:37] LABS: BICARBONATE 28.3 MEQ/L (21.0-32.0); MAGNESIUM 2.4 MG/DL (1.5-2.5); POTASSIUM 3.8 MEQ/L (3.5-5.1)
[2016-12-17] MEDS: SODIUM CHLORIDE 0.9% FLUSH 5 ML FLUSH FLUSH SCH ×2 (07:59→21:00)
[2016-12-17 08:00] VITALS: BP 134/63; PULSE 61; RESP 12; TEMP 97.8; O2SAT 97
[2016-12-17] MEDS: POTASSIUM CHLORIDE 20 MEQ CONTROLLED RELEASE TAB PO SCH (08:00)
[2016-12-17] MEDS: buPROPion HCL 150 MG SUSTAINED RELEASE TAB PO SCH ×2 (08:00→21:00)
[2016-12-17] MEDS: PANTOPRAZOLE SOD 40 MG DELAYED RELEASE TAB PO SCH (08:00)
[2016-12-17] MEDS: ASPIRIN 81 MG CHEW TAB CHEW SCH (08:01)
[2016-12-17] MEDS: DOCUSATE SODIUM 100 MG CAP PO SCH ×2 (08:01→21:00)
[2016-12-17] MEDS: CITALOPRAM HYDROBROMIDE 20 MG TAB PO SCH (08:01)
[2016-12-17] MEDS: VANCOMYCIN 1,500 MG/NS 500 ML IV SCH ×4 (10:38→18:00)
[2016-12-17 12:00] VITALS: BP 130/64; PULSE 63; RESP 12; TEMP 97.9; O2SAT 98
--- NOTE | 2016-12-17 13:27 | HHI.PR ---
Subjective Interval History alert , verbal, pain better controlled, wants to go home Review of Systems Constitutional Constitutional Remarks Pain as above, poor appetite, consistent reviewed otherwise negative Vitals/Results Intake & Output 12/16/16 12/16/16 12/17/16 15:00 23:00 07:00 Intake Total 1696 ml 613 ml 928 ml Output Total 800 ml 400 ml 800 ml Balance 896 ml 213 ml 128 ml Intake Oral 800 ml 340 ml 240 ml IV Total 896 ml 273 ml 688 ml Output Urine Total 800 ml 400 ml 800 ml # Bowel Movements 1 0 0 Vital Signs Vital Signs Date Time Temp Pulse Resp B/P Pulse Ox O2 Delivery O2 Flow Rate FiO2 12/17/16 12:00 97.9 63 12 130/64 98 12/17/16 08:00 97.8 61 12 134/63 97 12/17/16 00:00 97.0 76 18 107/59 96 12/16/16 20:00 97.0 99 18 123/62 97 12/16/16 16:00 76 14 126/66 96 CBC/BMP: 12/16/16 0326 12/17/16 0448 Lab Results Laboratory Tests Test 12/17/16 04:48 Sodium Level 140 MEQ/L Potassium Level 3.8 MEQ/L Chloride Level 105 MEQ/L Carbon Dioxide Level 28.3 MEQ/L Anion Gap 7 MEQ/L Blood Urea Nitrogen 3 MG/DL Creatinine 0.40 MG/DL Estimat Glomerular Filtration 164 ML/MIN Rate Random Glucose 82 MG/DL Calcium Level 8.8 MG/DL Phosphorus Level 3.4 MG/DL Magnesium Level 2.4 MG/DL Physical Exam General General Appearance: No Acute Distress, Anxious Eyes Eye Exam: Pupils Equal, Extraocular Movement Intact Eye Remarks Sclerae pale Ears & Nose Ears & Nose Exam: Nasal Mucosa [place] Throat Throat Exam: Oral Mucosa [place] & Moist Neck Neck Exam: Neck Supple, Trachea Midline Pulmonary Resp Exam: Clear Bilaterally, Breath Sounds Equal Cardiology CV Exam: Regular, Normal Sinus Rhythm Gastrointestinal/Abdomen GI Exam: Soft GI Remarks Tender left lower quadrant Musculoskeletal MS Exam: Normal Tone Integumentary Skin Exam: Warm, Dry Extremeties Extremities Exam: No Edema, Pedal Pulses Palpable Neurologic Neuro Exam: Alert, Awake, Oriented, Speech Clear, Moving All Extremities Psychiatric Psych Exam: Appropriate Responses PUD Prophylasis PUD Prophylaxis: Protonix Assessment/Plan Assessment/Plan ASSESSMENT AND PLAN . Early Sepsis on admission . Left iliacus/psoas muscle diffuse multiple abscesses . Hypokalemia, improved . Leukocytosis . Sciatica . Moderate protein calorie malnutrition . History of recent uterine cancer s/p hysterectomy with oophorectomy. . Anxiety disorder . Recent history of tobacco abuse. . s/p percutaneous drainage by IR . PLAN IV abx per ID , zosyn/vano wound culture to follow blood cultures negative so far analgesic , percocet/IV dilaudid Gynecology , infectious disease and oncology following, thank you monitor CBC . New wound cultures pending antidepressant xanax prn stop smoking PUD prophylaxis with Protonix DVT prophylaxis,sq lovenox d/w patient will follow plan from ID Discussed with nurse Nikky Barrett MD Dec 17, 2016 13:27
[2016-12-17 16:00] VITALS: BP 128/64; PULSE 64; RESP 12; TEMP 97.8; O2SAT 96
[2016-12-17 20:00] VITALS: BP 113/53; PULSE 70; RESP 18; TEMP 97.7; O2SAT 96
[2016-12-17] MEDS: ALPRAZolam 0.5 MG TAB PO PRN (21:28)
[2016-12-18] VITALS: BP 118/58; PULSE 62; RESP 18; TEMP 98.2; O2SAT 95
[2016-12-18] MEDS: metroNIDAZOLE 500 MG INJ 100 ML IV SCH ×2 (01:00→08:45)
[2016-12-18] MEDS: PIPERACIL-TAZO 4.5 GM PREMIX 100 ML IV SCH ×3 (01:10→13:25)
[2016-12-18] MEDS: VANCOMYCIN 1,500 MG/NS 500 ML IV SCH ×2 (02:58)
[2016-12-18] MEDS: oxyCODONE/ACETAMINOPHEN 10 MG/325 MG TAB PO PRN ×3 (03:02→13:25)
[2016-12-18] MEDS: DEXT 5% IV SCH (05:40)
[2016-12-18] MEDS: NACL 0.45% IV SCH (05:40)
[2016-12-18] MEDS: POTASSIUM CHLORIDE IV SCH (05:40)
[2016-12-18] MEDS: POTASSIUM CHLORIDE 20 MEQ CONTROLLED RELEASE TAB PO SCH (08:43)
[2016-12-18] MEDS: PANTOPRAZOLE SOD 40 MG DELAYED RELEASE TAB PO SCH (08:44)
[2016-12-18] MEDS: CITALOPRAM HYDROBROMIDE 20 MG TAB PO SCH (08:44)
[2016-12-18] MEDS: buPROPion HCL 150 MG SUSTAINED RELEASE TAB PO SCH (08:44)
[2016-12-18] MEDS: SODIUM CHLORIDE 0.9% FLUSH 5 ML FLUSH FLUSH SCH (08:44)
[2016-12-18] MEDS: ASPIRIN 81 MG CHEW TAB CHEW SCH (08:44)
[2016-12-18] MEDS: DOCUSATE SODIUM 100 MG CAP PO SCH (09:00)
[2016-12-18 09:12] VITALS: BP 116/57; PULSE 60; RESP 18; TEMP 97.4; O2SAT 94
[2016-12-18] MEDS ORDERED: PHARMACY ORDERED LAB XX ONE (09:45)
--- NOTE | 2016-12-18 11:03 | HHI.PR ---
Subjective Interval History alert, oriented, wants to go home, denies complaints Review of Systems Constitutional Constitutional Remarks , 10 systems reviewed otherwise negative Vitals/Results Intake & Output 12/17/16 12/17/16 12/18/16 15:00 23:00 07:00 Intake Total 1796 ml 1239 ml 1083 ml Output Total 1200 ml 100 ml 400 ml Balance 596 ml 1139 ml 683 ml Intake Oral 850 ml 240 ml 240 ml IV Total 946 ml 999 ml 843 ml Output Urine Total 1200 ml 400 ml Stool Total 100 ml # Voids 1 # Bowel Movements 2 0 Vital Signs Vital Signs Date Time Temp Pulse Resp B/P Pulse Ox O2 Delivery O2 Flow Rate FiO2 12/18/16 09:12 97.4 60 18 116/57 94 12/18/16 00:00 98.2 62 18 118/58 95 12/17/16 20:00 97.7 70 18 113/53 96 12/17/16 16:00 97.8 64 12 128/64 96 12/17/16 12:00 97.9 63 12 130/64 98 CBC/BMP: 12/16/16 0326 12/18/16 0449 Lab Results Laboratory Tests Test 12/18/16 12/18/16 04:49 09:25 Creatinine 0.57 MG/DL Estimat Glomerular Filtration 109 ML/MIN Rate Vancomycin Level Trough 42.3 MCG/ML Physical Exam General General Appearance: No Acute Distress, Anxious Eyes Eye Exam: Pupils Equal, Extraocular Movement Intact Eye Remarks Sclerae pale Ears & Nose Ears & Nose Exam: Nasal Mucosa [place] Throat Throat Exam: Oral Mucosa [place] & Moist Neck Neck Exam: Neck Supple, Trachea Midline Pulmonary Resp Exam: Clear Bilaterally, Breath Sounds Equal Cardiology CV Exam: Regular, Normal Sinus Rhythm Gastrointestinal/Abdomen GI Exam: Soft GI Remarks Tender left lower quadrant Musculoskeletal MS Exam: Normal Tone Integumentary Skin Exam: Warm, Dry Extremeties Extremities Exam: No Edema, Pedal Pulses Palpable Neurologic Neuro Exam: Alert, Awake, Oriented, Speech Clear, Moving All Extremities Psychiatric Psych Exam: Appropriate Responses PUD Prophylasis PUD Prophylaxis: Protonix Assessment/Plan Assessment/Plan ASSESSMENT AND PLAN . Early Sepsis on admission . Left iliacus/psoas muscle diffuse multiple abscesses . Hypokalemia, improved . Leukocytosis . Sciatica . Moderate protein calorie malnutrition . History of recent uterine cancer s/p hysterectomy with oophorectomy. . Anxiety disorder . Recent history of tobacco abuse. . s/p percutaneous drainage by IR . PLAN abx per ID analgesic , percocet Gynecology , infectious disease and oncology following, thank you antidepressant xanax prn stop smoking ready for discharge d/w patient Discussed with nurse Discharge Minutes: 45 Nikky Barrett MD Dec 18, 2016 11:03
[2016-12-18 12:28] VITALS: BP 97/25; PULSE 69; RESP 18; TEMP 96.8; O2SAT 95
[2016-12-18] MEDS ORDERED: OXYC1TAB36 PO (14:56)
[2016-12-18] MEDS: ALPRAZolam 0.5 MG TAB PO PRN (15:32)
[2016-12-18] MEDS ORDERED: AUGM500T7 PO (16:02)
[2016-12-18] MEDS ORDERED: METR-1 PO (16:02)
--- NOTE | 2016-12-18 16:13 | HHI.IDPN ---
Note Infectious Disease Note Patient feels well. No complaint. Afebrile. Denies abdominal or flank pain. Abscess drain removed and abscess noted to be completely drained. Culture negative. WBC normal. PAST MEDICAL HISTORY 1. Uterine cancer, 2. Anxiety disorder, 3. Hypoglycemia 4. x3 5. Recent hysterectomy and oophorectomy. 6. Right rotator cuff repair. ALLERGIES NO KNOWN DRUG ALLERGIES. MEDICATIONS 1. Vancomycin. 2. Piperacillin/Tazobactam 3. Metronidazole. OBJECTIVE: Vital Signs Date Time Temp Pulse Resp B/P Pulse Ox O2 Delivery O2 Flow Rate FiO2 12/18/16 12:28 96.8 69 18 97/25 95 12/18/16 09:12 97.4 60 18 116/57 94 12/18/16 00:00 98.2 62 18 118/58 95 12/17/16 20:00 97.7 70 18 113/53 96 12/17/16 12/17/16 12/18/16 15:00 23:00 07:00 Intake Total 1796 ml 1239 ml 1083 ml Output Total 1200 ml 100 ml 400 ml Balance 596 ml 1139 ml 683 ml Intake Oral 850 ml 240 ml 240 ml IV Total 946 ml 999 ml 843 ml Output Urine Total 1200 ml 400 ml Stool Total 100 ml # Voids 1 # Bowel Movements 2 0 Laboratory Tests Test 12/17/16 12/18/16 04:48 04:49 Sodium Level 140 MEQ/L Potassium Level 3.8 MEQ/L Chloride Level 105 MEQ/L Carbon Dioxide Level 28.3 MEQ/L Anion Gap 7 MEQ/L Blood Urea Nitrogen 3 MG/DL Creatinine 0.40 MG/DL 0.57 MG/DL Estimat Glomerular Filtration 164 ML/MIN 109 ML/MIN Rate Random Glucose 82 MG/DL Calcium Level 8.8 MG/DL Phosphorus Level 3.4 MG/DL Magnesium Level 2.4 MG/DL PHYSICAL EXAMINATION GENERAL: Awake and alert and in no acute distress. HEENT: No icterus. Oropharynx - moist mucosa without lesions. NECK: Supple without adenopathy or swelling. LUNGS: Clear breath sounds HEART: Regular rate and rhythm. No murmurs. No rubs. No gallops. ABDOMEN: Bowel sounds present, soft. Non tender. EXTREMITIES: No clubbing, cyanosis or edema. Pulses 2+ symmetrically upper and lower extremities. SKIN: No rash. NEUROLOGIC: Nonfocal. PSYCHIATRIC: Tearful but pleasant. IMPRESSION 1. Iliopsoas abscess. Completely drained via catheter. No residual fluid per CT. Negative culture. 2. Leukocytosis secondary to number one. Improved. 3. Post surgery for endometrial cancer. RECOMMENDATIONS Discontinue Vancomycin, Pip/Tazo and Flagyl. Change to PO Augmentin and Flagyl x 2 weeks. Follow up with her [employer]NA[employer] surgeon. D/W Patient and . Zeeshan Garay MD Dec 18, 2016 16:13
--- NOTE | 2017-01-18 17:01 | HHI.DS ---
Discharge Summary Admission Date Dec 12, 2016 at 00:01 Discharge Date: Dec 18, 2016 Admitting Diagnosis L iliacis abscess; leukocytosis Brief History This was a pleasant 56 year-old white female who presented to the emergency room with fever, chills, nausea and vomiting since November 28, 2016. She also complained of some vaginal spotting and bleeding with increased pelvic discomfort. She stated that she was struggling to ambulate and to change positions in the bed. The patient was in her usual state of health until October in which she started having abnormal spotting and bleeding. She was found to be positive for uterine cancer after a biopsy and underwent a total hysterectomy with bilateral salpingo-oophorectomy on November 06, 2016. She was told that the surgery was a success and she would have a three week postop visit. She returned to that visit without any major problems or issues. Approximately 48 hours later, she had a severe onset of nausea and vomiting. She stated that she had dry heaves to the point that she could not recover. She called her physician, Dr. Pond, who gave her nausea medications. The patient was also given Cipro for a five day plan. After beginning the Cipro, she began to have blisters/rash chiefly affecting the trunk of her body so the antibiotic was stopped. The patient had persistent fever, continues with left pelvic pain and left sided abdominal pain. She had approximately a five pound weight loss since the initial surgery, but stated at this point, she felt like she has some fluid build up or some swelling in her abdomen. The patient denied any headache. The patient stated the nausea has improved, but she was still having the fever and chills. The patient did present some anxiety over her current illness and states that she just wanted to get to feeling better. The patient denied any diarrhea, constipation, sore throat, chest pain or shortness of breath. Imaging Last Impressions Pelvis CT 12/15/16 0000 Signed Impressions: Service Date/Time: Thursday, December 15, 2016 16:17 - CONCLUSION: The abscess drain has pulled out of the original location. There is no residual fluid percutaneous accessible for drainage at this time. There remains edema throughout the iliacus and psoas muscles. If the abscess reaccumulates percutaneous drainage can be entertained at that time. Michi Gee Jr., MD Abscess Drainage CT 12/13/16 0000 Signed Impressions: Service Date/Time: Tuesday, December 13, 2016 15:00 - CONCLUSION: Uncomplicated CT guided drainage of the left iliopsoas abscess. Bear Mclean MD FACR Chest X-Ray 12/11/162106 Signed Impressions: Service Date/Time: Sunday, December 11, 2016 21:27 - CONCLUSION: No acute disease. Roberto Rene MD Abdomen/Pelvis CT 12/11/162106 Signed Impressions: Service Date/Time: Sunday, December 11, 2016 22:49 - CONCLUSION: 1. The left iliacis muscle is diffusely enlarged with multiple low-density pockets characteristic for multiple abscesses. The largest pocket measures approximately 4.6 cm. 2. 9 mm right renal cyst. Ruben Manriquez MD Lower Extremity Ultrasound 12/11/16 0000 Signed Impressions: Service Date/Time: Sunday, December 11, 2016 22:22 - CONCLUSION: No evidence of DVT. Ruben Manriquez MD PE at Discharge General Appearance: No Acute Distress, Anxious Eyes Eye Exam: Pupils Equal, Extraocular Movement Intact Eye Remarks Sclerae pale Ears & Nose Ears & Nose Exam: Nasal Mucosa Whiteside Throat Throat Exam: Oral Mucosa Whiteside & Moist Neck Neck Exam: Neck Supple, Trachea Midline Pulmonary Resp Exam: Clear Bilaterally, Breath Sounds Equal Cardiology CV Exam: Regular, Normal Sinus Rhythm Gastrointestinal/Abdomen GI Exam: Soft GI Remarks Tender left lower quadrant Musculoskeletal MS Exam: Normal Tone Integumentary Skin Exam: Warm, Dry Extremeties Extremities Exam: No Edema, Pedal Pulses Palpable Neurologic Neuro Exam: Alert, Awake, Oriented, Speech Clear, Moving All Extremities Psychiatric Psych Exam: Appropriate Responses PUD Prophylasis PUD Prophylaxis: Protonix Hospital Course These are the diagnoses that were used to treat this patient during this hospital stay for her plan of care . Early Sepsis on admission . Left iliacus/psoas muscle diffuse multiple abscesses . Hypokalemia, improved . Leukocytosis . Sciatica . Moderate protein calorie malnutrition . History of recent uterine cancer s/p hysterectomy with oophorectomy. . Anxiety disorder . Recent history of tobacco abuse. . s/p percutaneous drainage by IR . ID consult for their expert opinion started and recommended IV abx , zosyn/vano wound cultures were done and blood cultures done negative so far Pain management was evaluated, percocet/IV dilaudid was ordered and effective. Gynecology was consult did and also saw the patient. received supportive care, but made no medical recommendations to the current diagnosis and treatment plan . This was a oncology patient had recent cancer diagnosis and surgical intervention. These 2 groups were called for their expert opinion. Patient received a percutaneous drainage for a left psoas abscess. Patient received immediate relief. Cultures were taken and pending. When care involved for dressing changes, observation, and recommendations. She did present with leukocytosis in her blood, but this was actively treated with her antibiotics and drainage. On discharge her levels returned to normal. Labs including CBC and chemistries , blood and wound cultures, were monitored throughout hospital stay. Abnormals were treated with medical management. Initially on admission patient had a critical potassium level which was very low. She received potassium boluses, labs were redrawn the next day and patient returned to a normal level. No other calcium abnormals during her hospital stay. New wound cultures were done but no infectious disease was found. Cultures were negative Medications were reconciled and evaluated for patient's needs which included an antidepressant and xanax prn She has been a long-term tobacco user . Patient was educated to stop smoking. PUD prophylaxis with Protonix DVT prophylaxis,sq lovenox Patient was stabilized on December 18, her being seen per Dr. Barrett. Patient was discharged back to her home Pt Condition on Discharge: Stable Discharge Disposition: Discharge Home Discharge Instructions DIET: Follow Instructions for: Heart Healthy Diet, High Fiber Diet Activities you can perform: Weight Bearing as Dania Follow up Referrals: [employer] - [address] GEORGI KAUR , [place], [place] New Medications: Amoxicillin-Clavulanate (Augmentin) 500-125 mg Tab 500 MG PO Q8H Infection Days 14 Ref 0 TAB Metronidazole (Flagyl) 500 Mg Tab 500 MG PO TID Infection Days 14 Ref 0 TAB Oxycodone-Acetaminophen (Oxycodone-Acetaminophen) 10-325 mg Tab 1 TAB PO Q4H PRN pain 5 to 7 #30 TAB Continued Medications: Alprazolam (Xanax) 0.5 Mg Tab 0.5 MG PO BID ANXIETY Ref 0 TAB Bupropion HCl ER 12 HR (Wellbutrin SR 12 HR) 150 Mg Tab 150 MG PO Q12HR Control Depression Ref 0 TAB Citalopram (Celexa) 20 Mg Tab 20 MG PO DAILY Control Depression #30 Ref 0 TAB Ibuprofen (Motrin Ib) 200 Mg Tab 200 MG PO Q6H PRN FEVER Ref 0 TAB Discontinued Medications: Hydrocodone-Acetaminophen (Hydrocodone-Acetaminophen) 5-325 mg Tab 1 TAB PO Q8HR PRN PAIN #30 Ref 0 TAB Yas Shahid Jan 18, 2017 17:00
== END 2016-12-18 17:56 | disposition home or self-care (01) | DRG 871 ==
LOC: PHED 20:33 → PHEDA 12-12 00:01 → PHEDH 12-12 04:05 → N07A 12-12 20:53
PROVIDERS: ADMIT Specialist; ATTEND Specialist
PROC: 0K9P3ZZ Drainage of Left Hip Muscle, Percutaneous Approach (ICD-10-PCS; principal; 2016-12-13)
DX: A41.9 Sepsis, unspecified organism (principal); K68.12 Psoas muscle abscess; E44.0 Moderate protein-calorie malnutrition; C54.1 Malignant neoplasm of endometrium; E87.6 Hypokalemia; F41.9 Anxiety disorder, unspecified; M54.32 Sciatica, left side; Z68.25 Body mass index [BMI] 25.0-25.9, adult; Z90.710 Acquired absence of both cervix and uterus; Z87.891 Personal history of nicotine dependence
CPT/HCPCS: 71010; 72192; 74177; 75989; 76376; 80048; 80053; 80202; 81001; 82565; 83605; 83690; 83735; 84100; 85014; 85018; 85025; 85027; 85610; 85730; 87040; 87070; 87205; 93971; C1729; C1769; J1170; J1650; J2250; J2405; J2543; J3010; J3370; J3480; J7030; J7040; J7050; Q9967